=== PATIENT | female | born 1960 | race African-American/Black ===

== ENCOUNTER → 2018-11-09 | Day surgery (SDC) | payer BC ==
[~2018-11-09] MED LIST: ASPIRIN81 M2 PO; ATORVASTATIN CA10 MG PO; COLESTIPOL HCL1 GM PO; GLIMEPIRIDE PO; LOSARTAN POTASS25 MG PO; MIDAZOLAM HCL 2 MG/2 ML VIAL ONE; MULTIVITAMINS1 EAC7 PO; OR PHACO EYE KIT ONE; PREOP PHACO EYE KIT ONE; VITAMIN B12 PO; VITAMIN D PO; Z.2.METFORMIN HCL500 PO
--- OUTSIDE RECORDS SUMMARY | 2018-11-09 06:48 | XMS REPORT | Continuity of Care Document ---
Author Author Junito jeannie Organization Interface Address Unknown Phone Unavailable Problems Problem Status Onset Date Classification Date Reported Comments Source Body mass index 30+ - obesity 09/25/2018 Diagnosis 09/25/2018 [facility] Immunization due 09/25/2018 Diagnosis 09/25/2018 [facility] Diarrhea 09/25/2018 Diagnosis 09/25/2018 [facility] Allergic rhinitis 09/25/2018 Diagnosis 09/25/2018 DAMASO Goodson,[facility] Productive cough 09/25/2018 Diagnosis 09/25/2018 [facility] Acute sinusitis 09/25/2018 Diagnosis 09/25/2018 [facility] Diabetes mellitus 09/25/2018 Diagnosis 09/25/2018 [facility] Epidermal cyst 02/10/2018 08/25/2018 [facility] Acute bronchitis, unspecified 02/05/2018 08/18/2018 DAMASO [place] Acute bronchitis<sup>1</sup> Resolved 01/19/2018 Problem 08/25/2018 Saw her doctoe on 01-19-18 for brinchitis; ststes receive a shot; may have been a steroid, and was put on antibiotic po, which is now competed. pt ststed she doesn't have any more productive cough; had a CXR on - which showed clear lung boss. DAMASO [place], [facility] EPIDERMAL CYST Active 01/06/2018 [facility] Cellulitis of left lower leg 10/08/2017 10/11/2017 [facility] Insect bite of left leg 10/08/2017 10/11/2017 [place] INSECT BITE LEFT LEG Active 10/08/2017 [facility] Encounter for screening mammogram for malignant neoplasm of breast 07/05/2017 10/09/2017 DAM[facility]O [place] Fur[place]cle 05/17/2017 Diagnosis 05/17/2017 [facility] E04.1 Active 02/12/2017 [facility] UNK Active 02/07/2016 [place] N90.89 Active 02/07/2016 [facility] CHOLELITHIASIS Active 06/21/2013 Condition 08/10/[facility] OBESITY Active 06/21/2013 Condition 08/10/2013 [facility] ABDOMINAL PAIN, RIGHT UPPER QUADRANT Active 06/21/2013 Condition 08/10/2013 [facility] Biliary calculus<sup>1</sup> Active 06/21/2013 Problem 10/09/2017 Data migrated from [employer] on 10/24/14. DAMASO Goodson, [facility] [place] Obesity<sup>2</sup> Active 06/21/2013 Problem 09/17/2017 Data migrated from [employer] on 10/24/14. DAMASO Goodson, [facility] [place] Right upper quadrant pain<sup>3</sup> Active 06/21/2013 Problem 09/17/2017 Data migrated from [employer] on 10/24/14. DAMASO Goodson, [facility] [place] Biliary calculus<sup>1</sup> Active 06/21/2013 Problem 02/26/2017 Data migrated from [employer] on 10/24/14. DAMASO Goodson, [place] Obesity<sup>2</sup> Active 06/21/2013 Problem 02/26/2017 Data migrated from [employer] on 10/24/14. DAMASO Goodson, [place] Right upper quadrant pain<sup>3</sup> Active 06/21/2013 Problem 02/26/2017 Data migrated from [employer] on 10/24/14. DAMASO Goodson [place] Biliary calculus<sup>1</sup> Active 06/21/2013 Problem 10/16/2017 Data migrated from [employer] on 10/24/14. DAMASO Goodson, [facility] Obesity<sup>3</sup> Active 06/21/2013 Problem 10/16/2017 Data migrated from [employer] on 10/24/14. DAMASO Alaniz, [facility] Right upper quadrant pain<sup>4</sup> Active 06/21/2013 Problem 10/16/2017 Data migrated from [employer] on 10/24/14. DAMASO Alaniz, [facility] Biliary calculus<sup>1</sup> Active 06/21/2013 Problem 10/11/2017 Data migrated from [employer] on 10/24/14. DAMASO Goodson, [place] Obesity<sup>3</sup> Active 06/21/2013 Problem 10/11/2017 Data migrated from [employer] on 10/24/14. DAMASO Alaniz, [place] Right upper quadrant pain<sup>4</sup> Active 06/21/2013 Problem 10/11/2017 Data migrated from [employer] on 10/24/14. DAMASO Alaniz, [place] Biliary calculus<sup>2</sup> Active 06/21/2013 Problem 08/25/2018 Data migrated from [employer] on 10/24/14. DAMASO Rodas, [facility] Obesity<sup>4</sup> Active 06/21/2013 Problem 08/25/2018 Data migrated from [employer] on 10/24/14. DAMASO Rodas, [facility] Right upper quadrant pain<sup>5</sup> Active 06/21/2013 Problem 08/25/2018 Data migrated from [employer] on 10/24/14. DAMASO Rodas, [facility] Sleep apnea<sup>1</sup> Resolved Problem 06/03/2014 1uses CPAP [facility] [place] Allergic rhinitis Resolved Problem 10/09/2017 HECTOR Goodson [facility] [place] Contact dermatitis Resolved Problem 10/09/2017 DAMASO Goodson, [facility] [place] Glaucoma Resolved Problem 09/17/2017 DAMASO Goodson [facility] [place] Sickle cell trait Active Problem 10/09/2017 DAMASO Goodson [facility] [place] Sleep apnea<sup>4</sup> Active Problem 09/17/2017 uses CPAP DAMASO Goodson [facility] [place] Allergic rhinitis Resolved Problem 02/26/2017 HECTOR Goodson [place] Contact dermatitis Resolved Problem 02/26/2017 HECTOR Goodson [place] Glaucoma Resolved Problem 02/26/2017 DAMASO Goodson [place] Sickle cell trait Active Problem 02/26/2017 DAMASO Goodson [place] Sleep apnea<sup>4</sup> Active Problem 02/26/2017 uses CPAP DAMASO Goodson [place] Allergic rhinitis Resolved Problem 08/25/2018 DAMASO Goodson [facility] Contact dermatitis Resolved Problem 08/25/2018 DAMASO Goodson, [facility] Diabetes mellitus type 2 Active Problem 08/25/2018 DAMASO Alaniz, OPIWindy Goodson,[facility], [facility] High cholesterol Active Problem 08/25/2018 DAMASO Alaniz, [facility] Incontinence, feces<sup>2</sup> Active Problem 10/16/2017 takes PO meds OPIWindy Alaniz, [facility] Sickle cell trait Active Problem 08/25/2018 DAMASO Goodson, [facility] Sleep apnea<sup>5</sup> Active Problem 10/16/2017 uses CPAP DAMASO Alaniz, [facility] Allergic rhinitis Resolved Problem 10/11/2017 DAMASO Goodson, [place] Contact dermatitis Resolved Problem 10/11/2017 DAMASO Goodson, [place] Diabetes mellitus type 2 Active Problem 10/11/2017 DAMASO Alaniz, DAMASO Goodson,[facility], [place] High cholesterol Active Problem 10/11/2017 OPIWindy Alaniz, [place] Incontinence, feces<sup>2</sup> Active Problem 10/11/2017 takes PO meds OPIWindy Alaniz, [place] Sickle cell trait Active Problem 10/11/2017 DAMASO Goodson, [place] Sleep apnea<sup>5</sup> Active Problem 10/11/2017 uses CPAP OPID [place], [place] Allergic rhinitis Resolved Problem 08/18/2018 DAMASO Goodson, OPID [place] Contact dermatitis Resolved Problem 08/18/2018 DAMASO Goodson, [facility] [place] Diabetes mellitus type 2 Active Problem 08/18/2018 [facility] [place], OPIWindy Goodson,[facility], [facility] [place] High cholesterol Active Problem 08/18/2018 [facility] [place], OP[facility] [place] Sickle cell trait Active Problem 08/18/2018 OPIWindy Goodson, OP[facility] [place] Other granulomatous disorders of the skin and subcutaneous tissue 08/25/2018 [facility] Other specified disorders of breast 08/25/2018 [facility] Scar conditions and fibrosis of skin 08/25/2018 [facility] Type 2 diabetes mellitus without complications 08/25/2018 [facility] Obstructive sleep apnea (pediatric) 08/25/2018 [facility] Sickle-cell trait 08/25/2018 [facility] long term use of oral hypoglycemic drugs 08/25/2018 [facility] Incontinence, feces<sup>3</sup> Active Problem 08/25/2018 takes PO meds [facility], [facility] Menopause Active [facility] Sleep apnea<sup>6</sup> Active Problem 08/25/2018 uses CPAP OPID [facility], [facility] Viral Enteritis Problem 05/17/2017 [facility] Acute Upper Respiratory Infection Problem 05/17/2017 [facility] Gastroenteritis Problem 05/17/2017 [facility] Constipation Problem 05/17/2017 [facility] OTH NONINFLAMMATORY DISORDERS OF VULVA A Active [facility] HIDRADENITIS SUPPURATIVA Active [facility] Medications Medication Details Route Status Patient Instructions Ordering Provider Order Date Source midazolam (ANES) Route: IV, Drug form: SOLN, ONCE, Stop date: 02/05/18 7:48:00 CDT Inactive 02/05/2018 [facility] fentaNYL (ANES) Route: IV, Drug form: INJ, ONCE, Stop date: 02/05/18 7:48:00 CDT Inactive 02/05/2018 [facility] ondansetron (ANES) Route: IV, Drug form: INJ, ONCE, Stop date: 02/05/18 7:48:00 CDT Inactive 02/05/2018 [facility] propofol (ANES) Route: IV, Drug form: INJ, ONCE, Stop date: 02/05/18 7:48:00 CDT Inactive 02/05/2018 [facility] lidocaine (ANES) Route: IV, Drug form: INJ, ONCE, Stop date: 02/05/18 7:48:00 CDT Inactive 02/05/2018 [facility] acetaminophen (ANES) 10 mg Route: IV, Drug form: INJ, Start date: 02/05/18 7:15:00 CDT, Stop date: 02/05/18 8:15:00 CDT Inactive 02/05/2018 [facility] clindamycin (ANES) 300 mg Route: IV, Drug form: INJ, Start date: 02/05/18 7:12:00 CDT, Stop date: 02/05/18 8:12:00 CDT Inactive 02/05/2018 [facility] Lactated Ringers Injection IV (ANES) 1000 mL Route: IV, Total Volume: 1,000, Start date: 02/05/18 7:08:00 CDT, Stop date: 02/05/18 8:08:00 CDT Inactive 02/05/2018 [facility] Lactated Ringers IV 1,000 mL 1,000 mL, Rate: 40 ml/hr, Infuse over: 25 hr, Route: IV, Dosing Weight 95.727 kg, Total Volume: 1,000, Start date: 02/05/18 5:23:00 CDT, Duration: 30 day, Stop date: 03/07/18 5:22:00 CDT, 2.15, m2 No Longer Active 02/05/2018 [facility] heparin 5,000 unit, Route: SUB-Q, ONCE, Dosing Weight 95.727, kg, Start date: 02/05/18 5:23:00 CDT, Stop date: 02/05/18 5:23:00 CDT Inactive 02/05/2018 [facility] Ofirmev 1,000 mg, 100 mL, Route: IV, Drug form: INJ, ONCE, Dosing Weight 95.727, kg, Start date: 02/05/18 5:23:00 CDT, Stop date: 02/05/18 5:23:00 CDTNotes: Infuse over 15 minutes Do not exceed 4gm/day of acetaminophen MEDICATION WASTE Product Size: 1000 mg Product Wasted: ___ mg No Longer Active 02/05/2018 [facility] 72 HR Scopolamine 0.0139 MG/HR Transdermal Patch 1.5 mg, 1 patch, Route: TOP, Dosing Weight 95.727, kg, ONCE, Start date: 02/05/18 5:23:00 CDT, Stop date: 02/05/18 5:23:00 CDT Inactive 02/05/2018 [facility] Clindamycin 600 mg, 50 mL, Route: IVPB, Drug form: INJ, ONCE, Dosing Weight 95.727, kg, Start date: 02/05/18 5:22:00 CDT, Stop date: 02/05/18 5:22:00 CDT, ABX Indication: Surgical Prophylaxis No Longer Active 02/05/2018 [facility] Cephalexin 500 MG Oral Capsule [Keflex] 500 mg=1 cap, PO, QID, X 7 day, # 28 cap, 0 Refill(s) Active 10/09/2017 [facility] metFORMIN 500 mg oral tablet, extended release 1,000 mg=2 tab, PO, BID-Meals, # 60 tab, 1 Refill(s) Active 10/08/2017 [facility] losartan 25 mg oral tablet 25 mg=1 tab, PO, Daily, # 30 tab, 0 Refill(s) Active 10/08/2017 [facility] glimepiride 1 mg oral tablet 2 mg=2 tab, PO, BID, # 30 tab, 0 Refill(s) Active 10/08/2017 [facility] DULoxetine 30 mg oral delayed release capsule 30 mg=1 cap, PO, Bedtime, # 30 cap, 0 Refill(s) Active 10/08/2017 [facility] Colestipol Hydrochloride 1000 MG Oral Tablet 1 gm=1 tab, PO, BID, # 60 tab, 0 Refill(s) Active 10/08/2017 [facility] atorvastatin 10 mg oral tablet 10 mg=1 tab, PO, Bedtime, # 30 tab, 0 Refill(s) Active 10/08/2017 [facility] Insulin regular 3 unit, Route: IV, ONCE, Dosing Weight 95.455, kg, Start date: 02/19/16 13:40:00 CDT, Stop date: 02/19/16 13:40:00 CDT Inactive 02/19/2016 [facility] Motrin 600 mg oral tablet 600 mg=1 tab, PO, Q6H, PRN Pain, take with food, # 30 tab, 0 Refill(s) Active 02/19/2016 [facility] ketOROLAC (ANES) IV, ONCE Inactive 02/19/2016 [facility] Diphenhydramine 12.5 mg, Route: IVP, Drug form: INJ, Q6H, Dosing Weight 95.455, kg, PRN Itching, Start date: 02/19/16 8:50:00 CDT, Duration: 30 day, Stop date: 03/20/16 8:49:00 CDT Inactive 02/19/2016 [facility] Naloxone 0.4 mg, Route: IVP, Q2MIN, Dosing Weight 95.455, kg, PRN Narcotic Reversal, Start date: 02/19/16 8:50:00 CDT, Duration: 8 doses or times, Stop date: Limited # of times Inactive 02/19/2016 [facility] Promethazine 6.25 mg, Route: IVPB, ONCE, Dosing Weight 95.455, kg, PRN Nausea & Vomiting, Start date: 02/19/16 8:50:00 CDT Inactive 02/19/2016 [facility] Ondansetron 4 mg, Route: IVP, ONCE, Dosing Weight 95.455, kg, PRN Nausea & Vomiting, Start date: 02/19/16 8:50:00 CDT Inactive 02/19/2016 [facility] Fentanyl 50 microgram, Route: IVP, Q5Min, Dosing Weight 95.455, kg, PRN Pain Score 7-10, Start date: 02/19/16 8:50:00 CDT, Duration: 2 doses or times, Stop date: Limited # of times Inactive 02/19/2016 [facility] Flumazenil 0.2 mg, Route: IVP, PRN, Dosing Weight 95.455, kg, PRN Benzodiazepine Reversal, Initial dose, Start date: 02/19/16 8:50:00 CDT, Duration: 30 day, Stop date: 03/20/16 8:49:00 CDT Inactive 02/19/2016 [facility] Meperidine 12.5 mg, Route: IVP, Q30Min, Dosing Weight 95.455, kg, PRN Other -See Comment, For shivering, Start date: 02/19/16 8:50:00 CDT, Duration: 2 doses or times, Stop date: Limited # of times Inactive 02/19/2016 [facility] Sodium Chloride 0.154 MEQ/ML Injectable Solution 500 mL, Rate: 125 ml/hr, Infuse over: 4 hr, Route: IV, Dosing Weight 95.455 kg, Total Volume: 500, Start date: 02/19/16 8:50:00 CDT, Duration: 30 day, Stop date: 03/20/16 8:49:00 CDT Inactive 02/19/2016 [facility] Calcium Chloride 0.0014 MEQ/ML / Potassium Chloride 0.004 MEQ/ML / Sodium Chloride 0.103 MEQ/ML / Sodium Lactate 0.028 MEQ/ML Injectable Solution 1,000 mL, Rate: 125 ml/hr, Infuse over: 8 hr, Route: IV, Dosing Weight 95.455 kg, Total Volume: 1,000, Start date: 02/19/16 8:50:00 CDT, Duration: 30 day, Stop date: 03/20/16 8:49:00 CDT Inactive 02/19/2016 [facility] Oxycodone 5 mg, Route: PO, Drug form: TAB, Q4H, Dosing Weight 95.455, kg, PRN Pain Score 4-6, Start date: 02/19/16 8:50:00 CDT, Duration: 30 day, Stop date: 03/20/16 8:49:00 CDT Inactive 02/19/2016 [facility] Acetaminophen 1,000 mg, Route: PO, Drug form: TAB, ONCE, Dosing Weight 95.455, kg, PRN Pain Score 1-3, Start date: 02/19/16 8:50:00 CDT, Duration: 1 doses or times, Stop date: Limited # of times Inactive 02/19/2016 [facility] esmolol 10 mg, Route: IVP, Q5Min, Dosing Weight 95.455, kg, PRN Other -See Comment, Start date: 02/19/16 8:50:00 CDT, Duration: 5 doses or times, Stop date: Limited # of times Inactive 02/19/2016 [facility] Hydralazine 10 mg, Route: IVP, Q20Min, Dosing Weight 95.455, kg, PRN Elevated BP, Start date: 02/19/16 8:50:00 CDT, Duration: 2 doses or times, Stop date: Limited # of times Inactive 02/19/2016 [facility] Labetalol 10 mg, Route: IVP, Q5Min, Dosing Weight 95.455, kg, PRN Elevated BP, Start date: 02/19/16 8:50:00 CDT, Duration: 5 doses or times, Stop date: Limited # of times Inactive 02/19/2016 [facility] Hydromorphone 0.5 mg, Route: IVP, Q5Min, Dosing Weight 95.455, kg, PRN Pain Score 7-10, Start date: 02/19/16 8:50:00 CDT, Duration: 4 doses or times, Stop date: Limited # of times Inactive 02/19/2016 [facility] ondansetron (ANES) Route: IV, Drug form: INJ, ONCE, Stop date: 02/19/16 8:35:00 CDT Inactive 02/19/2016 [facility] dexamethasone (ANES) Route: IV, Drug form: INJ, ONCE, Stop date: 02/19/16 8:35:00 CDT Inactive 02/19/2016 [facility] fentaNYL (ANES) Route: IV, Drug form: INJ, ONCE, Stop date: 02/19/16 8:25:00 CDT Inactive 02/19/2016 [facility] propofol (ANES) Route: IV, Drug form: INJ, ONCE, Stop date: 02/19/16 8:25:00 CDT Inactive 02/19/2016 [facility] lidocaine (ANES) Route: IV, Drug form: INJ, ONCE, Stop date: 02/19/16 8:25:00 CDT Inactive 02/19/2016 [facility] ceFAZolin (ANES) Route: IV, Drug form: INJ, ONCE, Stop date: 02/19/16 8:25:00 CDT Inactive 02/19/2016 [facility] midazolam (ANES) Route: IV, Drug form: SOLN, ONCE, Stop date: 02/19/16 8:10:00 CDT Inactive 02/19/2016 [facility] LR 1000 mL INJ (ANES) Route: IV, Total Volume: 1,000, Start date: 02/19/16 7:33:00 CDT, Stop date: 02/19/16 8:33:00 CDT Inactive 02/19/2016 [facility] Albuterol 0.833 MG/ML / Ipratropium [place] 0.167 MG/ML Inhalant Solution 3 mL, Route: NEB, Dosing Weight 95.455, kg, ONCE, STAT, Start date: 02/19/16 7:32:00 CDT, Stop date: 02/19/16 7:32:00 CDT Inactive 02/19/2016 [facility] Sodium Chloride 0.154 MEQ/ML Injectable Solution 500 mL, Rate: 25 ml/hr, Infuse over: 20 hr, Route: IV, Dosing Weight 95.455 kg, Total Volume: 500, Start date: 02/19/16 7:32:00 CDT, Duration: 30 day, Stop date: 03/20/16 7:31:00 CDT Inactive 02/19/2016 [facility] Calcium Chloride 0.0014 MEQ/ML / Potassium Chloride 0.004 MEQ/ML / Sodium Chloride 0.103 MEQ/ML / Sodium Lactate 0.028 MEQ/ML Injectable Solution 1,000 mL, Rate: 25 ml/hr, Infuse over: 40 hr, Route: IV, Dosing Weight 95.455 kg, Total Volume: 1,000, Start date: 02/19/16 7:32:00 CDT, Duration: 30 day, Stop date: 03/20/16 7:31:00 CDT Inactive 02/19/2016 [facility] Sodium Chloride 0.154 MEQ/ML Injectable Solution 1,000 mL, Rate: 25 ml/hr, Infuse over: 40 hr, Route: IV, Dosing Weight 94.091 kg, Total Volume: 1,000, Start date: 05/04/15 7:27:00, Duration: 30 day, Stop date: 06/03/15 7:26:00 Inactive 05/04/2015 [facility] predniSONE 20 mg oral tablet 20 mg=1 tab, PO, Daily, # 7 tab, 0 Refill(s) Active 05/03/2015 [facility] METFORMIN HCL 500 MG TABS Active 06/21/2013 [facility] GLIMEPIRIDE TABS Active 06/21/2013 [facility] MULTIVITAMINS CAPS Active 06/21/2013 [facility] [id number] 1000 MCG CAPS Active 06/21/2013 [facility] atorvastatin 10 MG Oral Tablet atorvastatin 10 mg tablet TAKE 1 TABLET BY MOUTH EVERY DAY Active [facility] Sulfamethoxazole 800 MG / Trimethoprim 160 MG Oral Tablet [Bactrim] Bactrim DS 800 mg-160 mg tablet Take 1 tablet every 12 hours by oral route as directed for 10 days. Active [facility] Cephalexin 500 MG Oral Tablet cephalexin 500 mg tablet Take 1 tablet every 12 hours by oral route as directed for 10 days. Active [facility] Colestipol Hydrochloride 1000 MG Oral Tablet colestipol 1 gram tablet TK 1 T PO D IN THE MORNING Active [facility] FreeStyle Avinger Lite kit FreeStyle Avinger Lite kit USE DIRECTED Active [facility] FreeStyle Lite Strips FreeStyle Lite Strips USE DAILY DIRECTED Active [facility] glimepiride 1 MG Oral Tablet glimepiride 1 mg tablet TAKE ONE AND ONE HALF TABLET BY MOUTH 2 TIMES A DAY WITH BREAKFAST AND EVENING MEAL Active [facility] 24 HR Metformin hydrochloride 500 MG Extended Release Oral Tablet metformin ER 500 mg tablet,extended release 24 hr TAKE 2 TABLETS BY MOUTH IN THE MORNING AND 1 TABLET WITH THE EVENING MEAL Active [facility] multivitamin multivitamin Active [facility] Naproxen 500 MG Oral Tablet naproxen 500 mg tablet TAKE 1 TABLET BY MOUTH TWICE A DAY Active [facility] Cholecalciferol 2000 UNT Oral Capsule Vitamin D3 2,000 unit capsule Active [facility] Albuterol 0.83 MG/ML Inhalation Solution albuterol sulfate 2.5 mg/3 mL (0.083 %) solution for nebulization Inhale 3 mL by nebulization route. Active [facility] Azithromycin 250 MG Oral Tablet azithromycin 250 mg tablet TAKE 2 TABLETS (500 MG) with food today and starting tomorrow 1 TABLET (250 MG) with LUNCH ONCE DAILY FOR 4 DAYS Active [facility] benzonatate 200 MG Oral Capsule benzonatate 200 mg capsule Take 1 capsule 3 times a day by oral route as needed for 10 days. Active [facility] Fluticasone propionate 0.05 MG/ACTUAT Metered Dose Nasal [place] fluticasone propionate 50 mcg/actuation nasal spray,suspension [place] 1 spray twice a day by intranasal route as directed for 10 days. Active [facility] Acetaminophen 325 MG / Hydrocodone Bitartrate 5 MG Oral Tablet hydrocodone 5 mg-acetaminophen 325 mg tablet TK 1 T PO Q 6 H PRF PAIN Active [facility] Cozaar losartan Active [facility] Allergies, Adverse Reactions, Alerts Substance Category Reaction Severity Reaction type Status Date Reported Comments Source Immunizations Immunization Date Given Site Status Last Updated Comments Source Hep A, adult 03/25/2017 completed [facility] influenza, unspecified formulation 02/22/2017 completed [facility] Tdap 05/25/2011 completed [facility] Results Order Name Results Value Reference Range Date Interpretation Comments Source PEF 58 % 09/25/2018 [facility] Percent Predicted Value 250 09/25/2018 [facility] PEF 260 09/25/2018 [facility] Percent Predicted Value 60 % 09/25/2018 [facility] Influenza A negative 09/25/2018 [facility] Influenza B negative 09/25/2018 [facility] CHEM PANEL eGFR 112 mL/min/1.73m2 02/04/2018 Result Comment: The eGFR is calculated using the CKD-EPI formula. In most young, healthy individuals the eGFR will be >90 mL/min/1.73m2. The eGFR declines with age. An eGFR of 60-89 may be normal in some populations, particularly the elderly, for whom the CKD-EPI formula has not been extensively validated. Use of the eGFR is not recommended in the following populations: Individuals with unstable creatinine concentrations, including patients and those with serious co-morbid conditions. Patients with extremes in muscle mass or diet. The data above are obtained from the National Kidney Disease Education Program (NKDEP) which additionally recommends that when the eGFR is used in patients with extremes of body mass index for purposes of drug dosing, the eGFR should be multiplied by the estimated BMI. [facility] CHEM PANEL Calcium Lvl 9.2 mg/dL 8.5 - 10.5 02/04/2018 [facility] CHEM PANEL Potassium Lvl 3.9 meq/L 3.5 - 5.1 02/04/2018 [facility] CHEM PANEL Sodium Lvl 140 meq/L 135 - 145 02/04/2018 [facility] CHEM PANEL CO2 27 meq/L 24 - 32 02/04/2018 [facility] CHEM PANEL Chloride Lvl 104 meq/L 95 - 109 02/04/2018 [facility] CHEM PANEL Glucose Lvl 118 mg/dL 70 - 99 02/04/2018 [facility] CHEM PANEL BUN 14 mg/dL 7 - 22 02/04/2018 [facility] CHEM PANEL Creatinine Lvl 0.68 mg/dL 0.50 - 1.40 02/04/2018 [facility] CHEM PANEL AGAP 12.9 meq/L 10.0 - 20.0 02/04/2018 [facility] HEMATOLOGY Neutrophils # 4.6 K/CMM 1.5 - 8.1 02/04/2018 [facility] HEMATOLOGY Lymphocytes # 2.3 K/CMM 1.0 - 5.5 02/04/2018 [facility] HEMATOLOGY Basophils # 0.1 K/CMM 0.0 - 0.2 02/04/2018 [facility] HEMATOLOGY Monocytes # 0.5 K/CMM 0.0 - 0.8 02/04/2018 [facility] HEMATOLOGY Eosinophils # 0.1 K/CMM 0.0 - 0.5 02/04/2018 [facility] HEMATOLOGY Microcyte 1+ *ABN* (02/04/18 3:08 PM) None Seen 02/04/2018 [facility] HEMATOLOGY Eosinophils 1.7 % 0.0 - 4.0 02/04/2018 [facility] HEMATOLOGY Segs 60.6 % 45.0 - 75.0 02/04/2018 [facility] HEMATOLOGY Lymphocytes 30.3 % 20.0 - 40.0 02/04/2018 [facility] HEMATOLOGY Basophils 1.1 % 0.0 - 1.0 02/04/2018 [facility] HEMATOLOGY Monocytes 6.3 % 2.0 - 12.0 02/04/2018 [facility] HEMATOLOGY MCV 78.1 fL 80.0 - 98.0 02/04/2018 [facility] HEMATOLOGY MCH 24.7 pg 27.0 - 31.0 02/04/2018 [facility] HEMATOLOGY MCHC 31.7 g/dL 32.0 - 36.0 02/04/2018 [facility] HEMATOLOGY Hgb 11.0 g/dL 12.0 - 16.0 02/04/2018 [facility] HEMATOLOG[facility] Hct 34.8 % 36.0 - 48.0 02/04/2018 [facility] HEMATOLOGY RDW 16.8 % 11.5 - 14.5 02/04/2018 [facility] HEMATOLOGY Platelet 240 K/CMM 133 - 450 02/04/2018 [facility] HEMATOLOGY MPV 8.6 fL 7.4 - 10.4 02/04/2018 [facility] HEMATOLOGY RBC 4.46 M/CMM 4.20 - 5.40 02/04/2018 [facility] HEMATOLOGY WBC 7.7 K/CMM 3.7 - 10.4 02/04/2018 [facility] SPECIAL CHEMISTRY Hgb A1C 7.8 % <=5.6 % 02/04/2018 [facility] Chest 2 views DX Chest 2 views DX Clinical Indication: J20.9 Acute bronchitis, unspecified - Acute bronchitis, unspecified. Comparison: None FINDINGS: PA and lateral chest radiographs were obtained. MEDIASTINUM: The cardiac silhouette is normal in size. The aorta is unremarkable. LUNGS: The lungs are clear. No pleural effusion. No pneumothorax. OTHER: No acute osseous abnormalities. IMPRESSION: No acute cardiopulmonary abnormality identified. URIAH: LAURENCE 01/29/2018 - - Read by: Austen Martinez MD Dictated Date/time: 01/30/18 10:32 Electronically Signed by: Austen Martinez MD 01/30/18 10:35 FINAL REPORT HECTOR Rothman [place] Breast Complete Uni US Breast Complete Uni US COMPLETE ULTRASOUND OF LEFT BREAST AND AXILLA: 09/14/2017 CLINICAL: Left Breast Mass/R92.8 Other Abnormal And Inconclusive Findings On Diagnostic Imaging Of Breast. COMPARISON:Comparison is made to exams dated: 07/03/2017 mammogram - [facility], 05/07/2016 mammogram, 03/15/2015 mammogram, 03/15/2015 ultrasound, 07/28/2013 mammogram, and 07/28/2013 ultrasound. TECHNIQUE: Color flow and real-time ultrasound of the left breast four quadrants and axilla regions were performed on the areas of interest. FINDINGS: There is 1.9 cm x 1.6 cm x 1.1 cm oval mass in the left breast at 1 o'clock posterior depth 16 cm from the nipple. This oval mass is hypoechoic. This correlates with mammography findings. Color flow imaging demonstrates that there is vascularity present. There are two other abnormally enlarged left axillary nodes with hilar effacement and a single similar node in the deep right axilla. The patient gives a history of hidradenitis suppurativa. IMPRESSION: SUSPICIOUS OF MALIGNANCY RECOMMENDATION:Bilateral axillary adenopathy is unchanged from prior exams, but remains suspicious. If this adenopathy has not been previously evaluated, biopsy is recommended. The 1.9 cm x 1.6 cm x 1.1 cm oval mass in the left breast resembles an enlarged lymph node and is at a low suspicion for malignancy. An ultrasound guided biopsy is recommended. This exam was interpreted at [id number] for HECTOR Alaniz, SL 15. Professional services are provided by the [facility]. Barrera Moran M.D., cm/hermes:09/14/2017 14:54:04 Media Operator(s): Claire Erwin [facility] letter sent: BI-RADS 4/5 Ultrasound BI-RADS: 4a Suspicious abnormality - low suspicion for malignancy 09/14/2017 - - Read by: Duglas Peña MD Dictated Date/time: 09/14/17 14:54 Electronically Signed by: Duglas Peña MD 09/14/17 14:54 FINAL REPORT HECTOR OPIWindy [place] Breast Mammo Scrn FIONA incl CAD MA Breast Mammo Scrn FIONA incl CAD MA BILATERAL DIGITAL SCREENING MAMMOGRAM WITH CAD: 07/03/2017 CLINICAL: Encounter For Screening Mammogram For Malignant Neoplasm Of Breast/Z12.31. Current study was evaluated with a Computer Aided Detection (CAD) system. COMPARISON:No prior exams were available for comparison. TECHNIQUE: Mammographic views were obtained using digital acquisition. Current study was also evaluated with a Computer Aided Detection (CAD) system. FINDINGS: There are scattered fibroglandular densities in both breasts. There is 2.5 cm oval high density mass with a circumscribed margin in the left axillary tail 17 cm from the nipple. This may be a skin lesion. No other significant masses, calcifications, or other findings are seen in either breast. IMPRESSION: INCOMPLETE: NEEDS ADDITIONAL IMAGING EVALUATION RECOMMENDATION:The 2.5 cm oval high density mass is indeterminate. Ultrasound with possible diagnostic mammography are recommended. This exam was interpreted at [id number] for HECTOR [place]. SUMMARY: The staff from [facility] will contact the patient to schedule the additional studies. A separate report will be issued following interpretation of the additional studies. Professional services are provided by the [facility]. Wili duran/hermes:07/03/2017 14:07:35 Media Operator(s): RT Luis(R)(M), [facility] letter sent: BI-RADS 0 Mammogram BI-RADS: 0 Indeterminate 07/03/2017 - - Read by: Wili Mcclendon MD Dictated Date/time: 07/03/17 14:07 Electronically Signed by: Wili Mcclendon MD 07/03/17 14:07 FINAL REPORT HECTOR Alaniz Glucose [Mass/volume] in Capillary blood Results 118 05/17/2017 [facility] Influenza A negative 05/17/2017 [facility] Influenza B negative 05/17/2017 [facility] Thyroid biopsy w guidance US Thyroid biopsy w guidance US Patient Name: ADIEL LADD : 1960; Age: 56 years y/o Female MR: [id number] Study: Thyroid biopsy w guidance US 02/23/2017 9:40 AM CDT Ordering Physician: Cheli Smith MD Clinical Indication: - Lt Thy nodule; Comparison: 01/08/2017 thyroid ultrasound exam Timeout performed prior to the procedure. Patient prepped and draped in a sterile fashion. Sonographic guidance. Lidocaine used for local anesthesia. Hard copy sonographic images recorded. Percutaneous 25-gauge FNA biopsy of dominant left thyroid lobe nodule. 4 FNA biopsy specimens obtained. Procedure well-tolerated. SL: [id number] 02/23/2017 - - Read by: Mat Olmedo MD Dictated Date/time: 02/23/17 11:13 Electronically Signed by: Mat Olmedo MD 02/23/17 11:14 FINAL REPORT [facility] US Thyroid US EXAM: US THYROID DATE: 01/08/2017 at 1521 hours INDICATION: - E04.1 Nontoxic single thyroid nodule ADDITIONAL INFORMATION: None. COMPARISON: None. TECHNIQUE: Multiplanar grayscale and color Doppler ultrasound of the neck were obtained in the area of the thyroid. FINDINGS: Thyroid parenchyma: Normal. Size: Right thyroid: 4.8 x 2.0 x 1.7 cm Left thyroid: 4.6 x 2.6 x 2.5 cm Isthmus thickness: 0.5 cm Thyroid nodules: Nodule 1: Location: Isthmus Size: 1.6 x 1.2 x 0.7 cm Composition: Solid or almost completely solid (2 points). Echogenicity: Isoechoic (1 point). Shape: Wider than tall (0 points). Margins: Smooth (0 points). Echogenic foci: Absent (0 points). Other: None. ACR TI-RADS Score: TR3 - Mildly suspicious (total 3 points). -- ACR recommendation:=2.5 cm FNA;=1.5 cm f/u in 1, 3, and 5 years; <1.5 cm no f/u or FNA. Recommendations: Follow-up in 1, 3, and 5 years. Nodule 2: Location: Left mid thyroid Size: 3.3 x 2.4 x 1.9 cm Composition: Solid or almost completely solid (2 points). Echogenicity: Hypoechoic (2 points). Shape: Wider than tall (0 points). Margins: Smooth (0 points). Echogenic foci: Absent (0 points). Other: None. ACR TI-RADS Score: TR4 - Moderately suspicious (total 4-6 points). -- ACR recommendation:=1.5 cm FNA;=1 cm f/u in 1, 2, 3, and 5 years; <1 cm no f/u or FNA. Recommendations: Fine-needle aspiration recommended Cervical lymph nodes: Normal. IMPRESSION: 1. Thyroid nodules with largest one meeting criteria for fine-needle aspiration. 2. Smallest nodule may be followed with imaging. REFERENCE: Nicky FN, Alida WD, Jesus Manuel EG, et al. ACR Thyroid Imaging, Reporting and Data System (TI-RADS): White Paper of the ACR TI-RADS Committee. J Am Luly Radiol. 2017; 14(5): 587-595. 01/08/2017 - - Read by: Adam Camacho MD Dictated Date/time: 01/09/17 08:34 Electronically Signed by: Adam Camacho MD 01/09/17 08:57 FINAL REPORT [facility] BLOOD BANK RESULTS ABO/Rh O POS 02/13/2016 [facility] BLOOD BANK RESULTS Antibody Scrn Negative (02/13/16 10:24 AM) 02/13/2016 [facility] CHEM PANEL Globulin 4.2 g/dL 2.7 - 4.2 02/13/2016 [facility] CHEM PANEL A/G Ratio 0.9 0.7 - 1.6 02/13/2016 [facility] CHEM PANEL AGAP 10.8 meq/L 10.0 - 20.0 02/13/2016 [facility] PANEL B/C Ratio 19 6 - 25 02/13/2016 [facility] CHEM PANEL Bili Total 0.2 mg/dL 0.2 - 1.3 02/13/2016 [facility] CHEM PANEL Total Protein 7.8 g/dL 6.4 - 8.4 02/13/2016 [facility] CHEM PANEL AST 15 unit/L 0 - 37 02/13/2016 [facility] CHEM PANEL Alk Phos 78 unit/L 39 - 136 02/13/2016 [facility] CHEM PANEL Albumin Lvl 3.6 g/dL 3.5 - 5.0 02/13/2016 [facility] CHEM PANEL ALT 19 unit/L 0 - 65 02/13/2016 [facility] CHEM PANEL Potassium Lvl 3.8 meq/L 3.5 - 5.1 02/13/2016 [facility] CHEM PANEL Chloride Lvl 106 meq/L 95 - 109 02/13/2016 [facility] CHEM PANEL Calcium Lvl 8.9 mg/dL 8.5 - 10.5 02/13/2016 [facility] CHEM PANEL CO2 26 meq/L 24 - 32 02/13/2016 [facility] CHEM PANEL Glucose Lvl 204 mg/dL 70 - 99 02/13/2016 [facility] CHEM PANEL BUN 13 mg/dL 7 - 22 02/13/2016 [facility] CHEM PANEL Creatinine Lvl 0.68 mg/dL 0.50 - 1.40 02/13/2016 [facility] CHEM PANEL Sodium Lvl 139 meq/L 135 - 145 02/13/2016 [facility] CHEM PANEL eGFR 114 mL/min/1.73m2 02/13/2016 Result Comment: The eGFR is calculated using the CKD-EPI formula. In most young, healthy individuals the eGFR will be >90 mL/min/1.73m2. The eGFR declines with age. An eGFR of 60-89 may be normal in some populations, particularly the elderly, for whom the CKD-EPI formula has not been extensively validated. Use of the eGFR is not recommended in the following populations: Individuals with unstable creatinine concentrations, including patients and those with serious co-morbid conditions. Patients with extremes in muscle mass or diet. The data above are obtained from the National Kidney Disease Education Program (NKDEP) which additionally recommends that when the eGFR is used in patients with extremes of body mass index for purposes of drug dosing, the eGFR should be multiplied by the estimated BMI. [facility] Hgb 11.1 g/dL 12.0 - 16.0 02/13/2016 [facility] RBC 4.56 M/CMM 4.20 - 5.40 02/13/2016 [facility] WBC 5.7 K/CMM 3.7 - 10.4 02/13/2016 [facility] MCV 75.1 fL 80.0 - 98.0 02/13/2016 [facility] RDW 16.7 % 11.5 - 14.5 02/13/2016 [facility] MCH 24.4 pg 27.0 - 31.0 02/13/2016 [facility] MCHC 32.5 g/dL 32.0 - 36.0 02/13/2016 [facility] Hct 34.2 % 36.0 - 48.0 02/13/2016 [facility] MPV 8.8 fL 7.4 - 10.4 02/13/2016 [facility] HEMATOLOGY Platelet 210 K/CMM 133 - 450 02/13/2016 [facility] HEMATOLOGY Lymphocytes 30.7 % 20.0 - 40.0 02/13/2016 [facility] HEMATOLOGY Segs 60.6 % 45.0 - 75.0 02/13/2016 [facility] HEMATOLOGY Monocytes 5.7 % 2.0 - 12.0 02/13/2016 [facility] HEMATOLOGY Eosinophils 1.7 % 0.0 - 4.0 02/13/2016 [facility] HEMATOLOGY Monocytes # 0.3 K/CMM 0.0 - 0.8 02/13/2016 [facility] HEMATOLOGY Eosinophils # 0.1 K/CMM 0.0 - 0.5 02/13/2016 [facility] HEMATOLOGY Segs-Bands # 3.4 K/CMM 1.5 - 8.1 02/13/2016 [facility] HEMATOLOGY Basophils # 0.1 K/CMM 0.0 - 0.2 02/13/2016 [facility] HEMATOLOGY Lymphocytes # 1.7 K/CMM 1.0 - 5.5 02/13/2016 [facility] HEMATOLOGY Basophils 1.3 % 0.0 - 1.0 02/13/2016 [facility] HEMATOLOGY Microcyte 1+ *ABN* (02/13/16 10:24 AM) None Seen 02/13/2016 [facility] Vital Signs Vital Sign Value Date Comments Source Diastolic (mm Hg) 70 09/25/2018 [facility] Height 67 09/25/2018 [facility] Systolic (mm Hg) 118 09/25/2018 [facility] Weight 208 09/25/2018 [facility] Heart Rate 72 02/05/2018 [facility] Respitory Rate 15 02/05/2018 [facility] Systolic (mm Hg) 116 02/05/2018 [facility] Diastolic (mm Hg) 78 02/05/2018 [facility] Respitory Rate 14 02/05/2018 [facility] Heart Rate 69 02/05/2018 [facility] Systolic (mm Hg) 114 02/05/2018 [facility] Diastolic (mm Hg) 79 02/05/2018 [facility] Systolic (mm Hg) 102 02/05/2018 [facility] Diastolic (mm Hg) 70 02/05/2018 [facility] Heart Rate 68 02/05/2018 [facility] Respitory Rate 15 02/05/2018 [facility] Temperature Oral (F) 98 F 02/05/2018 [facility] BMI Calculated 33.05 02/05/2018 [facility] Weight 95.727 02/05/2018 [facility] Temperature Oral (F) 97.0 F 02/04/2018 [facility] Height 170.18 cm 02/02/2018 [facility] Weight 98.636 10/09/2017 [facility] BMI Calculated 34.06 10/09/2017 [facility] Height 170.18 cm 10/09/2017 [facility] Systolic (mm Hg) 137 10/09/2017 [facility] Diastolic (mm Hg) 66 10/09/2017 [facility] Respitory Rate 18 10/09/2017 [facility] Temperature Oral (F) 98.5 F 10/09/2017 [facility] Heart Rate 80 10/09/2017 [facility] BMI Calculated 32.65 10/08/2017 [facility] Weight 94.545 10/08/2017 [facility] Height 170.18 cm 10/08/2017 [facility] Diastolic (mm Hg) 80 05/17/2017 [facility] Height 67 05/17/2017 [facility] Systolic (mm Hg) 122 05/17/2017 [facility] Weight 210 05/17/2017 [facility] Systolic (mm Hg) 133 02/19/2016 [facility] Diastolic (mm Hg) 79 02/19/2016 [facility] Systolic (mm Hg) 138 02/19/2016 [facility] Diastolic (mm Hg) 79 02/19/2016 [facility] Systolic (mm Hg) 134 02/19/2016 [facility] Diastolic (mm Hg) 74 02/19/2016 [facility] Respitory Rate 21 02/19/2016 [facility] Respitory Rate 13 02/19/2016 [facility] Respitory Rate 19 02/19/2016 [facility] Temperature Oral (F) 97.8 F 02/13/2016 [facility] Heart Rate 66 02/13/2016 [facility] Weight 95.455 02/13/2016 [facility] BMI Calculated 32.96 02/13/2016 [facility] Height 170.18 cm 02/13/2016 [facility] Systolic (mm Hg) 112 05/04/2015 [facility] Diastolic (mm Hg) 71 05/04/2015 [facility] Respitory Rate 17 05/04/2015 [facility] Systolic (mm Hg) 103 05/04/2015 [facility] Diastolic (mm Hg) 67 05/04/2015 [facility] Respitory Rate 14 05/04/2015 [facility] Respitory Rate 16 05/04/2015 [facility] Systolic (mm Hg) 143 05/04/2015 [facility] Diastolic (mm Hg) 77 05/04/2015 [facility] Height 170.18 cm 05/03/2015 [facility] BMI Calculated 32.49 05/03/2015 [facility] Weight 94.091 05/03/2015 [facility] Weight 179 08/04/2013 [facility] Temperature Oral (F) 98.1 F 08/04/2013 [facility] Heart Rate 68 08/04/2013 [facility] Systolic (mm Hg) 119 08/04/2013 [facility] Diastolic (mm Hg) 77 08/04/2013 [facility] Temperature Oral (F) 98.5 F 06/21/2013 [facility] Weight 187 06/21/2013 [facility] Heart Rate 64 06/21/2013 [facility] Systolic (mm Hg) 104 06/21/2013 [facility] Diastolic (mm Hg) 71 06/21/2013 [facility] Height 67 06/21/2013 [facility] Encounters Location Location Details Encounter Type Encounter Number Reason For Visit Attending Provider ADM Date DC Date Status Source [facility] General Surgery 350 Office Visit [id number] Kuldip Olivares MD 08/04/2013 08/04/2013 Medical [facility] [place] Lab Report [id number] Kuldip Olivares MD 08/10/2013 08/10/2013 Medical [facility] [place] [facility] [id number] Ivan Gabriel 01/19/2014 01/20/2014 [facility]patient [facility] [place] [facility] [id number] Ivan Gabriel 06/01/2014 06/02/2014 [facility] Bedded Outpatient [id number] Alex Gambino 05/04/2015 05/04/2015 [facility] Day Surgery [id number] Yamilex Hernandez 02/19/2016 02/19/2016 [facility] [place] Out[facility] Diag Services [id number] Cheli Smith 01/08/2017 [facility]/09/2017 [facility] [id number] Cheli Smith 02/23/2017 02/24/2017 [place] [facility] - [id number] MORGAN MccormackP-C: [address] [address], Ph. [id number] Lisa Alberto 05/17/2017 [facility] Outpatient [facility] [place] [facility] [id number] Cheli Smith 07/03/2017 07/04/2017 [facility] [place] [facility] Outpatient Imaging - [place] [facility] Di[facility] [id number] Cheli Smith 09/14/2017 09/15/2017 [facility] [place] [facility] Emergency [id number] Raman Olea 10/09/2017 10/09/2017 [facility] Day Surgery [id number] Anny Mckeon 10/13/2017 10/13/2017 [facility] Outpatient Imaging [facility] Outpt Diag Services [id number] Leona Serrano 01/29/2018 01/30/2018 [facility] Orthopedic [facility] Spine [facility] Day Surgery [id number] Anny Mckeon 02/05/2018 02/06/2018 [facility] [place] [facility] - [id number] Mavis Rodríguez, RADIO ELECTRICIAN-C: [address] [address], Ph. [id number] Mavis Rodríguez 09/25/2018 [facility] Procedures Procedure Code Date Perfomer Comments Source Cholecystectomy [id number] [facility] [place] [facility] [id number] [facility] [place] Tubal ligation [id number] [facility] [place] Cholecystectomy [id number] [facility] [place] Operation [id number] [facility] [place] Tubal ligation [id number] [facility] [place] Cholecystectomy [id number] [facility] [id number] [facility] Tubal ligation [id number] [facility] Cholecystectomy [id number] [facility] [id number] [facility] Tubal ligation [id number] [facility] Cholecystectomy [id number] [facility] [id number] [facility] Tubal ligation [id number] [facility] Cholecystectomy [id number] [facility] [place] Operation [id number] [facility] [place] Tubal ligation [id number] [facility] [place] Cholecystectomy [facility] Tubal Ligation [facility]
--- OUTSIDE RECORDS SUMMARY | 2018-11-09 06:49 | XMS REPORT | Summary of Care ---
Author Author [facility] Organization [facility] Address Unknown Phone Unavailable Encounter ROSE Jara(KENA) [id number] Date(s): 02/19/16 - 02/19/16 [facility] [address] [place] [address]- [phone] Discharge Disposition: Home or Self Care Attending Physician: Yamilex Hernandez MD Referring Physician: Yamilex Hernandez MD Vital Signs 1 2 3 Most recent to oldest [Reference Range]: 170.18 cm (02/13/16 10:03 AM) Height 97.8 DegF (02/13/16 10:03 AM) Temperature Oral [96.4-99.1 DegF] 133/79 mmHg (02/19/16 10:30 AM) 138/79 mmHg (02/19/16 10:15 AM) 134/74 mmHg (02/19/16 9:45 AM) Blood Pressure [90-140/60-90 mmHg] 21 BRMIN *HI* (02/19/16 9:45 AM) 13 BRMIN *LOW* (02/19/16 9:30 AM) 19 BRMIN (02/19/16 9:15 AM) Respiratory Rate [14-20 BRMIN] 66 bpm (02/13/16 10:03 AM) Peripheral Pulse Rate [60-100 bpm] 95.455 kg (02/13/16 10:03 AM) Weight 32.96 m2 (02/13/16 10:03 AM) Body Mass Index Problem List Condition Effective Dates Status Health Status Informant Allergic Resolved rhinitis(Confirmed) Biliary calculus1 06/21/13 Active Contact Resolved dermatitis(Confirmed ) Diabetes mellitus Active type 2(Confirmed) Glaucoma(Confirmed) Resolved Obesity2 06/21/13 Active Right upper quadrant 06/21/13 Active pain3 Sickle cell Active trait(Confirmed) Sleep Active apnea(Confirmed)4 1Data migrated from [employer] on 10/24/14. 2Data migrated from [employer] on 10/24/14. 3Data migrated from [employer] on 10/24/14. 4uses CPAP Allergies, Adverse Reactions, Alerts Substance Reaction Severity Status NKDA Active Medications albuterol-ipratropium 2.5-0.5 mg inhalation solution 3 mL, Route: NEB, Dosing Weight 95.455, kg, ONCE, STAT, Start date: 02/19/16 7:3 2:00 CDT, Stop date: 02/19/16 7:32:00 CDT Start Date: 02/19/16 Stop Date: 02/19/16 Status: Discontinued ANES acetaminophen 1,000 mg, Route: PO, Drug form: TAB, ONCE, Dosing Weight 95.455, kg, PRN Pain Sc ore 1-3, Start date: 02/19/16 8:50:00 CDT, Duration: 1 doses or times, Stop date : Limited # of times Start Date: 02/19/16 Stop Date: 02/19/16 Status: Discontinued ANES diphenhydrAMINE 12.5 mg, Route: IVP, Drug form: INJ, Q6H, Dosing Weight 95.455, kg, PRN Itching, Start date: 02/19/16 8:50:00 CDT, Duration: 30 day, Stop date: 03/20/16 8:49:00 CDT Start Date: 02/19/16 Stop Date: 02/19/16 Status: Discontinued ANES esmolol 10 mg, Route: IVP, Q5Min, Dosing Weight 95.455, kg, PRN Other -See Comment, Star t date: 02/19/16 8:50:00 CDT, Duration: 5 doses or times, Stop date: Limited # o f times Start Date: 02/19/16 Stop Date: 02/19/16 Status: Discontinued ANES fentaNYL 50 microgram, Route: IVP, Q5Min, Dosing Weight 95.455, kg, PRN Pain Score 7-10, Start date: 02/19/16 8:50:00 CDT, Duration: 2 doses or times, Stop date: Limited # of times Start Date: 02/19/16 Stop Date: 02/19/16 Status: Discontinued ANES fentaNYL 25 microgram, Route: IVP, Q5Min, Dosing Weight 95.455, kg, PRN Pain Score 4-6, S tart date: 02/19/16 8:50:00 CDT, Duration: 4 doses or times, Stop date: Limited # of times Start Date: 02/19/16 Stop Date: 02/19/16 Status: Discontinued ANES flumazenil 0.2 mg, Route: IVP, PRN, Dosing Weight 95.455, kg, PRN Benzodiazepine Reversal, Initial dose, Start date: 02/19/16 8:50:00 CDT, Duration: 30 day, Stop date: 8:49:00 CDT Start Date: 02/19/16 Stop Date: 02/19/16 Status: Discontinued ANES hydrALAZINE 10 mg, Route: IVP, Q20Min, Dosing Weight 95.455, kg, PRN Elevated BP, Start date : 02/19/16 8:50:00 CDT, Duration: 2 doses or times, Stop date: Limited # of time s Start Date: 02/19/16 Stop Date: 02/19/16 Status: Discontinued ANES HYDROmorphone 0.5 mg, Route: IVP, Q5Min, Dosing Weight 95.455, kg, PRN Pain Score 7-10, Start date: 02/19/16 8:50:00 CDT, Duration: 4 doses or times, Stop date: Limited # of times Start Date: 02/19/16 Stop Date: 02/19/16 Status: Discontinued ANES labetalol 10 mg, Route: IVP, Q5Min, Dosing Weight 95.455, kg, PRN Elevated BP, Start date: 02/19/16 8:50:00 CDT, Duration: 5 doses or times, Stop date: Limited # of times Start Date: 02/19/16 Stop Date: 02/19/16 Status: Discontinued ANES meperidine 12.5 mg, Route: IVP, Q30Min, Dosing Weight 95.455, kg, PRN Other -See Comment, F or shivering, Start date: 02/19/16 8:50:00 CDT, Duration: 2 doses or times, Stop date: Limited # of times Start Date: 02/19/16 Stop Date: 02/19/16 Status: Discontinued ANES naloxone 0.4 mg, Route: IVP, Q2MIN, Dosing Weight 95.455, kg, PRN Narcotic Reversal, Star t date: 02/19/16 8:50:00 CDT, Duration: 8 doses or times, Stop date: Limited # o f times Start Date: 02/19/16 Stop Date: 02/19/16 Status: Discontinued ANES ondansetron 4 mg, Route: IVP, ONCE, Dosing Weight 95.455, kg, PRN Nausea & Vomiting, Start date: 02/19/16 8:50:00 CDT Start Date: 02/19/16 Stop Date: 02/19/16 Status: Discontinued ANES oxyCODONE 5 mg, Route: PO, Drug form: TAB, Q4H, Dosing Weight 95.455, kg, PRN Pain Score 4 -6, Start date: 02/19/16 8:50:00 CDT, Duration: 30 day, Stop date: 03/20/16 8:49 :00 CDT Start Date: 02/19/16 Stop Date: 02/19/16 Status: Discontinued ANES oxyCODONE 10 mg, Route: PO, Drug form: TAB, Q4H, Dosing Weight 95.455, kg, PRN Pain Score 7-10, Start date: 02/19/16 8:50:00 CDT, Duration: 30 day, Stop date: 03/20/16 8: 49:00 CDT Start Date: 02/19/16 Stop Date: 02/19/16 Status: Discontinued ANES promethazine 6.25 mg, Route: IVPB, ONCE, Dosing Weight 95.455, kg, PRN Nausea & Vomiting, Start date: 02/19/16 8:50:00 CDT Start Date: 02/19/16 Stop Date: 02/19/16 Status: Discontinued ceFAZolin (ANES) Route: IV, Drug form: INJ, ONCE, Stop date: 02/19/16 8:25:00 CDT Start Date: 02/19/16 Stop Date: 02/19/16 Status: Completed dexamethasone (ANES) Route: IV, Drug form: INJ, ONCE, Stop date: 02/19/16 8:35:00 CDT Start Date: 02/19/16 Stop Date: 02/19/16 Status: Completed fentaNYL (ANES) Route: IV, Drug form: INJ, ONCE, Stop date: 02/19/16 8:25:00 CDT Start Date: 02/19/16 Stop Date: 02/19/16 Status: Completed Insulin regular 3 unit, Route: IV, ONCE, Dosing Weight 95.455, kg, Start date: 02/19/16 13:40:00 CDT, Stop date: 02/19/16 13:40:00 CDT Start Date: 02/19/16 Stop Date: 02/19/16 Status: Completed ketOROLAC (ANES) IV, ONCE Start Date: 02/19/16 Stop Date: 02/19/16 Status: Completed Lactated Ringers Injection IV 1000 mL 1,000 mL, Rate: 125 ml/hr, Infuse over: 8 hr, Route: IV, Dosing Weight 95.455 kg , Total Volume: 1,000, Start date: 02/19/16 8:50:00 CDT, Duration: 30 day, Stop date: 03/20/16 8:49:00 CDT Start Date: 02/19/16 Stop Date: 02/19/16 Status: Discontinued Lactated Ringers Injection IV 1000 mL 1,000 mL, Rate: 25 ml/hr, Infuse over: 40 hr, Route: IV, Dosing Weight 95.455 kg , Total Volume: 1,000, Start date: 02/19/16 7:32:00 CDT, Duration: 30 day, Stop date: 03/20/16 7:31:00 CDT Start Date: 02/19/16 Stop Date: 02/19/16 Status: Discontinued lidocaine (ANES) Route: IV, Drug form: INJ, ONCE, Stop date: 02/19/16 8:25:00 CDT Start Date: 02/19/16 Stop Date: 02/19/16 Status: Completed LR 1000 mL INJ (ANES) Route: IV, Total Volume: 1,000, Start date: 02/19/16 7:33:00 CDT, Stop date: 8:33:00 CDT Start Date: 02/19/16 Stop Date: 02/19/16 Status: Completed midazolam (ANES) Route: IV, Drug form: SOLN, ONCE, Stop date: 02/19/16 8:10:00 CDT Start Date: 02/19/16 Stop Date: 02/19/16 Status: Completed Motrin 600 mg oral tablet 600 mg=1 tab, PO, Q6H, PRN Pain, take with food, # 30 tab, 0 Refill(s) Start Date: 02/19/16 Stop Date: 03/20/16 Status: Ordered ondansetron (ANES) Route: IV, Drug form: INJ, ONCE, Stop date: 02/19/16 8:35:00 CDT Start Date: 02/19/16 Stop Date: 02/19/16 Status: Completed propofol (ANES) Route: IV, Drug form: INJ, ONCE, Stop date: 02/19/16 8:25:00 CDT Start Date: 02/19/16 Stop Date: 02/19/16 Status: Completed Sodium Chloride 0.9% IV 500 mL 500 mL, Rate: 125 ml/hr, Infuse over: 4 hr, Route: IV, Dosing Weight 95.455 kg, Total Volume: 500, Start date: 02/19/16 8:50:00 CDT, Duration: 30 day, Stop date : 03/20/16 8:49:00 CDT Start Date: 02/19/16 Stop Date: 02/19/16 Status: Discontinued Sodium Chloride 0.9% IV 500 mL 500 mL, Rate: 25 ml/hr, Infuse over: 20 hr, Route: IV, Dosing Weight 95.455 kg, Total Volume: 500, Start date: 02/19/16 7:32:00 CDT, Duration: 30 day, Stop date : 03/20/16 7:31:00 CDT Start Date: 02/19/16 Stop Date: 02/19/16 Status: Discontinued Results BLOOD BANK RESULTS Most recent to 1 oldest [Reference Range]: ABO/Rh O POS *Unknown* (02/13/16 10:24 AM) Antibody Scrn Negative (02/13/16 10:24 AM) ELECTROLYTES Most recent to 1 oldest [Reference Range]: Sodium Lvl [135-145 139 mEq/L mEq/L] (02/13/16 10:24 AM) Potassium Lvl 3.8 mEq/L [3.5-5.1 mEq/L] (02/13/16 10:24 AM) Chloride Lvl [95-109 106 mEq/L mEq/L] (02/13/16 10:24 AM) CO2 [24-32 mEq/L] 26 mEq/L (02/13/16 10:24 AM) AGAP [10.0-20.0 10.8 mEq/L mEq/L] (02/13/16 10:24 AM) CHEM PANEL Most recent to 1 oldest [Reference Range]: Creatinine Lvl 0.68 mg/dL [0.50-1.40 mg/dL] (02/13/16 10:24 AM) eGFR 114 mL/min/1.73m2 1 *NA* (02/13/16 10:24 AM) BUN [7-22 mg/dL] 13 mg/dL (02/13/16 10:24 AM) B/C Ratio [6-25] 19 (02/13/16 10:24 AM) Glucose Lvl [70-99 204 mg/dL mg/dL] *HI* (02/13/16 10:24 AM) Total Protein 7.8 g/dL [6.4-8.4 g/dL] (02/13/16 10:24 AM) Albumin Lvl [3.5-5.0 3.6 g/dL g/dL] (02/13/16 10:24 AM) Globulin [2.7-4.2 4.2 g/dL g/dL] (02/13/16 10:24 AM) A/G Ratio [0.7-1.6] 0.9 (02/13/16 10:24 AM) Calcium Lvl 8.9 mg/dL [8.5-10.5 mg/dL] (02/13/16 10:24 AM) ALT [0-65 unit/L] 19 unit/L (02/13/16 10:24 AM) AST [0-37 unit/L] 15 unit/L (02/13/16 10:24 AM) Alk Phos [39-136 78 unit/L unit/L] (02/13/16 10:24 AM) Bili Total [0.2-1.3 0.2 mg/dL mg/dL] (02/13/16 10:24 AM) 1Result Comment: The eGFR is calculated using the [...] from the National Kidney Disease Education Program ( NKDEP) which additionally recommends that when the eGFR is used in patients with extremes of body mass index for purposes of drug dosing, the eGFR should be mul tiplied by the estimated BMI. HEMATOLOGY Most recent to 1 oldest [Reference Range]: WBC [3.7-10.4 K/CMM] 5.7 K/CMM (02/13/16 10:24 AM) RBC [4.20-5.40 4.56 M/CMM M/CMM] (02/13/16 10:24 AM) Hgb [12.0-16.0 g/dL] 11.1 g/dL *LOW* (02/13/16:24 AM) Hct [36.0-48.0 %] 34.2 % *LOW* (02/13/16 10:24 AM) MCV [80.0-98.0 fL] 75.1 fL *LOW* (02/13/16:24 AM) MCH [27.0-31.0 pg] 24.4 pg *LOW* (02/13/16 10:24 AM) MCHC [32.0-36.0 32.5 g/dL g/dL] (02/13/16 10:24 AM) RDW [11.5-14.5 %] 16.7 % *HI* (02/13/16 10:24 AM) Platelet [133-450 210 K/CMM K/CMM] (02/13/16 10:24 AM) MPV [7.4-10.4 fL] 8.8 fL (02/13/16 10:24 AM) Segs [45.0-75.0 %] 60.6 % (02/13/16 10:24 AM) Lymphocytes 30.7 % [20.0-40.0 %] (02/13/16 10:24 AM) Monocytes [2.0-12.0 5.7 % %] (02/13/16 10:24 AM) Eosinophils [0.0-4.0 1.7 % %] (02/13/16 10:24 AM) Basophils [0.0-1.0 1.3 % %] *HI* (02/13/16 10:24 AM) Segs-Bands # 3.4 K/CMM [1.5-8.1 K/CMM] (02/13/16 10:24 AM) Lymphocytes # 1.7 K/CMM [1.0-5.5 K/CMM] (02/13/16 10:24 AM) Monocytes # [0.0-0.8 0.3 K/CMM K/CMM] (02/13/16 10:24 AM) Eosinophils # 0.1 K/CMM [0.0-0.5 K/CMM] (02/13/16 10:24 AM) Basophils # [0.0-0.2 0.1 K/CMM K/CMM] (02/13/16 10:24 AM) Microcyte [None 1+ Seen] *ABN* (02/13/16 10:24 AM) Immunizations No data available for this section Procedures Procedure Date Related Diagnosis Body Site Cholecystectomy Operation Operation Tubal ligation Social History Social History Type Response Substance Abuse Use: None. Alcohol Never Smoking Status Never smoker; Exposure to Tobacco Smoke None; Cigarette Smoking Last 365 Days No; Reg Smoking Cessation Counseling No Assessment and Plan Extracted from: Title: Clinical Document Author: Yamilex Hernandez Date: 02/19/16 MD [facility] Pre Op H&P HPI: Ms Salazar is a 55yo AAF who presents for hidradenitis of the vulva. Pt with longstanding history of the issue and states she has been having "bumps" on her pubic region since the age of 15. She has had multiple episodesof outbreaks ofthe bilateral axillae s/p hidradenitis resection. She gets multiple nodules that begin as hard tender nodules and then that drain. Desires removal of lesion of vulva. Constitutional Symptoms: - fever, - weight loss, - weight gain, - fatigue, - malaise Eyes: - diplopia, - blurred vision, - redness, - discharge, - loss of vision Ears, Nose, Mouth, Throat: - dysphagia, - odynophagia, - otalgia, - deafness, - rhinorrhea Cardiovascular: - chest pain, - SOB, - ALCARAZ, - orthopnea, - PND, - poor exercise tolerance, - palpitations Respiratory: - same as CVS, - cough, - hemoptysis Gastrointestinal: - NVD, - BPR, - dark stool, - constipation, - abdominal pain Genitourinary: - dysuria, - frequency, - urgency, - nocturia, - incontinence Musculoskeletal: - arthralgia, - myalgia, - stiffness Integumentary (skin and/or breast): - rash, - hives, - breast pain, - mass, - nipple dc Neurological: - weakness, - headache, - seizure, - dizziness, - tingling, - numbness Psychiatric: - anxiety, - depression, - insomnia Endocrine: - polyuria, - polydipsia, - fatigue, - weight loss, - weight gain, - cold or heat intolerance, - palpitations Hematologic/Lymphatic: - bleeding, - bruising, - edema, - lumps (axilla groin neck) Allergic/Immunologic: - rash, - allergies, - fever, - chills PMH: DM2, Sleep Apnea, SCT, Alpha Thalessemia PSH: BTL, Cholecystectomy, Axillary resection of hidradenitis Meds: Glimiperide, Metformin, MVI, B12 All: KNDA SHx: Denies x3 FHx: CAD- Father, h/o HTN, RA PE: VitalsTmp(F)Tmp(C)[id number] 02/18 06:[id number]/57---[id number]------ 24 Hr Tmax: 98.1F (36.72c) at 02/18 06:45Vital Signs are the last 5 in the past 48 hours. 24 Hr Tmin: 98.1F (36.72c) at 02/18 06:45Weights are the last 5 in 60 days, plus initial. DateWt(kg)Wt(lb)Ht(cm)Ht(in)MethodBMIBSA 02/12 (initial) 95.45 210.00Measured 33.02.12 .18 67.00Stated Gen: NAD Lungs: CTAB CV: RRR no m/g/r Abd: Soft, NT/ND, +BS Vacm area to the mons with 2 hard, non- tender abscessesnoted with draining. A/P: Ms Salazar is a 55yo AAF who presents for hidradenitis of the vulva. 1. Hidradenitis- Pt with chronic h/o hidradenitis with two lesions of the vulva unable to be drained in clinic. Pt desires to proceed with excision under general anesthesia. R/B/A discussed with pt to include pain, infection, bleeding,recurrence. Pt for surgery today Randee Pinon MD PGY-2
--- OUTSIDE RECORDS SUMMARY | 2018-11-09 06:49 | XMS REPORT | Summary of Care ---
Author Organization Unknown Address Unknown Phone Unavailable Care Team Providers Care Fire Prevention Specialist Name Role Phone Austen Hopson PCP Unavailable Encounter Patfracisco_vanessa(KENA) [id number] Date(s): 01/19/14 - 01/19/14 [facility] Outpatient Imaging - [address] [address] [place] Discharge Disposition: Home Physician Attending: Ivan Gabriel MD Reason for Visit 250.0 - DIABETES MELLIT Problem List Condition Effective Dates Status Health Status Informant Diabetes mellitus Resolved type 2(Confirmed) Sleep Resolved apnea(Confirmed)1 1uses CPAP Allergies, Adverse Reactions, Alerts Substance Reaction Severity Status NKDA Active Medications No data available for this section Medications Administered During Your Visit No data available for this section Immunizations No data available for this section Social History Social History Type Response Smoking Status Never smoker, Exposure to Tobacco Smoke None, Cigarette Smoking Last 365 Days No, Reg Smoking Cessation Counseling No
--- OUTSIDE RECORDS SUMMARY | 2018-11-09 06:49 | XMS REPORT | Summary of Care ---
Author Author [facility] Organization [facility] Address Unknown Phone Unavailable Encounter HQ Angelica_vanessa(FIN) [id number] Date(s): 02/23/17 - 02/23/17 [facility] [address] [place] [address]- Discharge Disposition: Home or Self Care Attending Physician: Cheli Smith MD Referring Physician: Cheli Smith MD Vital Signs No data available for this section Problem List Condition Effective Dates Status Health [...] Medications No data available for this section Results No data available for this section Immunizations No data available for this section Procedures Procedure Date Related Diagnosis Body Site Cholecystectomy Operation Operation Tubal ligation Social History Social History Type Response Substance Abuse Use: None. Alcohol Never Smoking Status Never smoker; Exposure to Tobacco Smoke None; Cigarette Smoking Last 365 Days No; Reg Smoking Cessation Counseling No Assessment and Plan No data available for this section
--- OUTSIDE RECORDS SUMMARY | 2018-11-09 06:49 | XMS REPORT | Continuity of Care Document ---
Author Author [facility] Organization [facility] Address Unknown Phone Unavailable Care Team Providers Care Lead Custodian Name Role Phone MD Marshall, Kuldip WILLIAMSON Unavailable Insurance Providers Payer name Policy type / Coverage type Policy ID Covered alliance party ID Policy [place] [facility] (POS) Encounters Encounter Performer Location Date Lab Report Kuldip Olivares MD [facility] [place] Aug 10, 2013 Problems Problem Effective Dates Problem Status CHOLELITHIASIS Jun 21, 2013 Active OBESITY Jun 21, 2013 Active ABDOMINAL PAIN, RIGHT UPPER QUADRANT Jun 21, 2013 Active Procedures Date Description Comments Jun 21, 2013 smoking status never smoker Medications Medication Instructions Start Date Status METFORMIN HCL 500 MG TABS Jun 21, 2013 Active GLIMEPIRIDE TABS Jun 21, 2013 Active MULTIVITAMINS CAPS Jun 21, 2013 Active B-12 1000 MCG CAPS Jun 21, 2013 Active Vital Signs Date Description Test Result Jun 21, 2013 temperature E&M TEMPERATURE 98.5 deg f Jun 21, 2013 weight E&M - 3141-9 WEIGHT 187 lb Jun 21, 2013 pulse rate E&M - 8867-4 PULSE RATE 64 /min Jun 21, 2013 blood pressure, systolic - 8480-6 BP SYSTOLIC 104 mm Hg Jun 21, 2013 blood pressure, diastolic - 8462-4 BP DIASTOLIC 71 mm Hg Jun 21, 2013 height E&M - 8302-2 HEIGHT 67 in Aug 04, 2013 weight E&M - 3141-9 WEIGHT 179 lb Aug 04, 2013 temperature E&M TEMPERATURE 98.1 deg f Aug 04, 2013 pulse rate E&M - 8867-4 PULSE RATE 68 /min Aug 04, 2013 blood pressure, systolic - 8480-6 BP SYSTOLIC 119 mm Hg Aug 04, 2013 blood pressure, diastolic - 8462-4 BP DIASTOLIC 77 mm Hg
--- OUTSIDE RECORDS SUMMARY | 2018-11-09 06:49 | XMS REPORT | Encounter Summary ---
Author Organization Unknown Address [address] [place] [address] Phone [phone] Care Team Providers Care Masonry Contractor Name Role Phone Cheli Smith 3 [phone] Reason for Visit Medical Complaint Instructions 1. Acute sinusitis sinusitis: care instructions azithromycin 250 mg tablet 2. Diarrhea diarrhea: care instructions rapid flu (A+B) 3. Diabetes mellitus type 2 diabetes: care instructions 4. Productive cough peak flow benzonatate 200 mg capsule albuterol sulfate 2.5 mg/3 mL (0.083 %) solution for nebulization peak flow 5. Allergic rhinitis allergies: care instructions managing your allergies: care instructions fluticasone propionate 50 mcg/actuation nasal spray,suspension 6. Immunization due 7. Body mass index 30+ - obesity body mass index: care instructions learning about healthy weight Discussion Note: None recorded. Plan of Care Patient Instructions Sinus Infection- Bacterial You have a bacterial infection causing a sinus infection. Take antibiotics only as prescribed. Once starting an antibiotic course, finish the entire course unless otherwise indicated by a medical professional. If you develop a reaction to the medication, including rash, hives, swelling of throat, and/or difficulty breathing, stop immediately and seek medical care. Take a daily probiotic or eat a daily yogurt. Use OTC (over the counter) and prescription medications as directed. If symptoms continue to worsen instead of improve, or worsening cough or sinus pain, shortness of breath, thick mucus, or other concerning symptoms develop, call or visit [facility] or your PCP (primary care provider) for further care. Seek immediate medical attention (ER or 911) if difficulty breathing, chest pain, chest pressure, severe headache, neck pain or other concerning symptoms develop. If you have any need to contact [facility], including questions or concerns, please contact or . Diarrhea Use OTC (over the counter) or prescribed medications as directed Only use Imodium OTC if recommended- do not use if you have bloody diarrhea, high fever, or other signs of illness Eat a bland diet, including rice, bananas, apples, toast Take a daily probiotic or eat a daily yogurt with live cultures If diarrhea is occurring, slowly reintroduce liquids by taking small, frequent sips of water until no diarrhea occurs for 1-3 hours. Then, reintroduce solids by taking small bites of bland food. Avoid spicy foods, alcohol, and caffeine until 48 hours after symptoms are gone. If symptoms worsen or do not improve, or rash, abdominal pain, vomiting, continued diarrhea, dizziness, excessive thirst, dark or decreasing amounts of urine, loss of consciousness, or other concerning symptoms develop, seek medical attention If you have any need to contact [facility], including questions or concerns, please contact or Reminders Provider Appointments None recorded. Lab Rapid Flu (A+B) 09/25/2018 [facility] Referral None recorded. Procedures None recorded. Surgeries None recorded. Imaging None recorded. Medications Name Start Date albuterol sulfate 2.5 mg/3 mL (0.083 %) solution for nebulization Inhale 3 mL by nebulization route. atorvastatin 10 mg tablet TAKE 1 TABLET BY MOUTH EVERY DAY azithromycin 250 mg tablet TAKE 2 TABLETS (500 MG) with food today and starting tomorrow 1 TABLET (250 MG) with LUNCH ONCE DAILY FOR 4 DAYS benzonatate 200 mg capsule Take 1 capsule 3 times a day by oral route as needed for 10 days. colestipol 1 gram tablet TK 1 T PO D IN THE MORNING fluticasone propionate 50 mcg/actuation nasal spray,suspension Purdys 1 spray twice a day by intranasal route as directed for 10 days. glimepiride 1 mg tablet TAKE ONE AND ONE HALF TABLET BY MOUTH 2 TIMES A DAY WITH BREAKFAST AND EVENING MEAL hydrocodone 5 mg-acetaminophen 325 mg tablet TK 1 T PO Q 6 H PRF PAIN losartan metformin ER 500 mg tablet,extended release 24 hr TAKE 2 TABLETS BY MOUTH IN THE MORNING AND 1 TABLET WITH THE EVENING MEAL multivitamin naproxen 500 mg tablet TAKE 1 TABLET BY MOUTH TWICE A DAY Vitamin D3 2,000 unit capsule Medications Administered Name Date albuterol sulfate 2.5 mg/3 mL (0.083 %) solution for nebulization Inhale 3 mL by nebulization route. [id number] Vitals Height Weight BMI Blood Pressure 5 ft 7 in 208 lbs 32.6 kg/m2 118/70 mm[Hg] Lab Results Date Name Specimen Result Interpretation Description Value Range Status Address 09/25/2018 Peak Flow Pef 58% [facility]: [facility] Percent Predicted Value 250 [facility]: [facility] Peak Flow Pef 260 [facility]: [facility] Percent Predicted Value 60% [facility]: [facility] Rapid Flu (A+B) Influenza a negative [facility]: [facility] Influenza B negative [facility]: [facility] Allergies Code Code System Name Reaction Severity Status Onset NKDA Problems No Known Problems Procedures Date Name Performed by Cholecystectomy Information not available Tubal Ligation Information not available Vaccine List Vaccine Type Hep A, adult 03/25/2017 influenza, unspecified formulation 02/22/2017 Tdap 05/25/2011 Social History Smoking Status Never Smoker Past Encounters 09/25/2018 Acute Sinusitis; Diarrhea; Diabetes Mellitus; Productive Cough; Allergic Rhinitis; Immunization Due; Body Mass Index 30+ - Obesity Mavis Rodríguez, VP [employer]GAN[employer]OPMENT-C: [address] [place] [address], Ph. History of Present Illness Ejxjj-Cosztgnets-Bpsatfw Reported By: Patient HPI: Location: head/sinuses, chest. Quality: productive cough, sore throat, colored phlegm, nasal/sinus congestion. Duration: 4days. Onset/Timing: gradual. Context: no sick contacts, no foreign travel, non-smoker. Modifying factors: OTC medication. Associated Symptoms: no shortness of breath, no wheezing, no change in number of pillows needed to sleep at night, no sweats, no significant weight gain, no significant weight loss, no morning cough, no vomiting, no rash, no nausea, no fever, yellow sputum, fatigue, diarrhea, fever Review of Systems Basic Reported By: Patient Wmuj-Oscd-Rncms-Throat: Ears: no ear complaints Neurologic: Neurologic: no dizziness Physical Exam Adult Basic, Adult Female Complete Reported By: Patient Constitutional: General Appearance: obese. Level of Distress: NAD. Ambulation: ambulating normally Psychiatric: Mental Status: active and alert. Orientation: to time, to place, to person Eyes: Lids and Conjunctivae: non-injected, no discharge, no pallor. Pupils: PERRLA. Sclerae: non-icteric Lxq-Ijko-Ylyww-Throat: Ears: no lesions on external ear, no outer ear tenderness, EACs clear, TMs clear. Hearing: no hearing loss. Nose: no lesions on external nose, nares patent, no septal deviation, nasal passages clear, sinus tenderness, nasal discharge--rhinorrhea, post nasal drip. Lips, Teeth, and Gums: no mouth or lip ulcers. Oropharynx: moist mucous membranes, no erythema, no exudates, tonsils not enlarged Neck: Neck: supple. Lymph Nodes: anterior cervical LAD Lungs: Respiratory effort: no dyspnea, no tachypnea, no use of accessory muscles, no intercostal retractions. Auscultation: breath sounds normal Cardiovascular: Heart Auscultation: RRR, no murmurs Neurologic: Gait and Station: normal gait, normal station Skin: Inspection and palpation: no rash, no lesions, no ulcer, no abnormal nevi, no induration, no nodules, good turgor, no jaundice; on visible skin Abdomen: Bowel Sounds: normal. Inspection and Palpation: soft, non-distended, no tenderness, no guarding, no rebound tenderness, no masses. Liver: non-tender, no hepatomegaly. Spleen: non-tender, no splenomegaly
--- OUTSIDE RECORDS SUMMARY | 2018-11-09 06:49 | XMS REPORT | Encounter Summary ---
Author Organization Unknown Address [address] [place] [address] Phone [phone] Care Team Providers Care Toucher Up Name Role Phone Cheli Smith 3 [phone] Reason for Visit Medical Complaint Instructions 1. Furuncle cephalexin 500 mg tablet Bactrim DS 800 mg-160 mg tablet 2. Diarrhea diarrhea: care instructions rapid flu (A+B) 3. Diabetes mellitus glucose, fingerstick, blood Discussion Note Pt is in NAD; Verbalizes understanding of all instructions with no questions at this time. Plan of Care Patient Instructions Stay hydrated, eat a liquid diet for the first four hours. Stay away from fried and spicy foods until symptoms resolve. If you do experience improvement in your symptoms within the next four hours, advance yourself to a carbohydrate-rich diet such as white rice, white bread, and crackers. Within the next four hours thereafter, you can advance to lean meats such as chicken, fish, and turkey. Four hours thereafter if symptoms do improve, then advance to a regular diet. Take over the counter imodium as per package insert for diarrhea. If no improvement follow up with your PCP or GI specialist within the next week. Keep left breast area clean and dry. Clean with soap and water twice a day, pat dry. Take antibiotics as directed. Take medications as prescribed. Return to clinic or follow up with your PCP within 2-3 days if symptoms worsen as discussed. In case of emergency: worsening swelling or redness, tingling/numbness/loss of sensation and purple discoloration call 911 or go to nearest ER. Recommend monitor BP and blood sugar at home and document, bring BP and blood sugar log to PCP for review. Continue medications as directed and do not skip meals. I Recommend follow a low sodium/carb/fat diet and exercise 30-45 mins/d 3-4 days a week Reminders Provider Appointments None recorded. Lab Rapid Flu (A+B) 05/17/2017 [facility] Glucose, Fingerstick, Blood 05/17/2017 [facility] Referral None recorded. Procedures None recorded. Surgeries None recorded. Imaging None recorded. Medications Name Start Date atorvastatin 10 mg tablet TAKE 1 TABLET BY MOUTH EVERY DAY Bactrim DS 800 mg-160 mg tablet Take 1 tablet every 12 hours by oral route as directed for 10 days. cephalexin 500 mg tablet Take 1 tablet every 12 hours by oral route as directed for 10 days. colestipol 1 gram tablet TK 1 T PO D IN THE MORNING FreeStyle [place] Lite kit USE DIRECTED FreeStyle Lite Strips USE DAILY DIRECTED glimepiride 1 mg tablet TAKE 1 TABLET BY MOUTH TWICE A DAY metformin ER 500 mg tablet,extended release 24 hr TAKE 2 TABLETS BY MOUTH IN THE MORNING AND 1 TABLET WITH THE EVENING MEAL multivitamin naproxen 500 mg tablet TAKE 1 TABLET BY MOUTH TWICE A DAY Vitamin D3 2,000 unit capsule Medications Administered None recorded. Vitals Height Weight BMI Blood Pressure 5 ft 7 in 210 lbs 32.9 kg/m2 122/80 mm[Hg] Lab Results Date Name Specimen Result Interpretation Description Value Range Status Address Glucose, Fingerstick, Blood Results 118 [facility]: [address] [place] [address] Rapid Flu (A+B) Influenza a negative [facility]: [address] [place] [address] Influenza B negative [facility]: [address] [place] [address] Allergies Code Code System Name Reaction Severity Status Onset NKDA Problems Name Status Onset Date Source Viral Enteritis Active Encounter Acute Upper Respiratory Infection Active Encounter Gastroenteritis Active Encounter Constipation Active Encounter Procedures Date Name Performed by Cholecystectomy Information not available Tubal Ligation Information not available Vaccine List Vaccine Type Hep A, adult 03/25/2017 influenza, unspecified formulation 02/22/2017 Tdap 05/25/2011 Social History Smoking Status Never Smoker Past Encounters 05/17/2017 Furuncle; Diarrhea; Diabetes Mellitus Lisa Alberto, HEALTH INFORMATICS SPECIALIST-C: [address] [place] [address], Ph. History of Present Illness Czthct-Xkmumocq-Ljtxgktp / Abdominal Pain Reported By: Patient HPI: Quality: watery, intermittent. Severity: moderate. Duration: present for < 1 week, symptoms last for how long?. Onset/Timing: gradual onset, 1-3 times a day. Context: no one else with similar symptoms, no recent camping, no recent picnic, no possible food sources, no recent travel, has had a colonoscopy; Pt reports she has h/o fecal incontinence and constipation. She is currently on metformin and colestipol and reports she has never had diarrhea with these meds. Alleviating factors: better with fasting. Aggravating factors: eating. Associated Symptoms: no abdominal pain, no excess gas, no fever/chills, no rash, no joint pain, no weight loss, no vomiting, no heartburn, no blood in stool, no mucus in stool, no black or tarry stools, no weakness, no nutrient deficiency, no headache, no feeling of fullness/mass in throat, no muscle aches, no bitter taste in the mouth, no difficulty swallowing (dysphagia); watery diarrhea Wnqg-Rwhindo-Ibivt-Skin Lesion-Bite 1 Reported By: Patient HPI: Location: ; left breast. Quality: not itchy, painful, tender, red, multiple, localized, swollen, repeated infections. Severity: worsening, moderate. Duration: has noted for 1-2 weeks. Onset/Timing: gradual onset, recurring. Context: no new detergents or skin products, no one else with similar rash, no sting or bite, scratching; Last mammogram and breast US normal per pt. Aggravating factors: clothing. Alleviating factors: nothing gives relief. Associated Symptoms: no fever/chills, no muscle aches, no headache, no cold symptoms, no nausea, no vomiting, no urinary symptoms, diarrhea Review of Systems:ROS as noted in the HPI Review of Systems Basic Reported By: Patient Physical Exam Adult Basic, 14-21 Yr Male, Adult Female Complete, Adult Male Complete, 11-13 Yr Females Reported By: Patient Constitutional: General Appearance: healthy-appearing, well-nourished, well-developed. Level of Distress: NAD. Ambulation: ambulating normally Psychiatric: Mental Status: active and alert, normal affect, normal mood. Orientation: to time, to place, to person Eyes: Lids and Conjunctivae: non-injected, no discharge, no pallor. Lens: clear. Sclerae: non-icteric Kfu-Tfka-Qdhvr-Throat: Lips, Teeth, and Gums: no mouth or lip ulcers, no bleeding gums, normal dentition. Oropharynx: moist mucous membranes, no erythema, no exudates, tonsils not enlarged Neck: Neck: supple, FROM. Lymph Nodes: no cervical LAD, no axillary LAD Lungs: Respiratory effort: no dyspnea, no tachypnea, no use of accessory muscles, no intercostal retractions. Auscultation: breath sounds normal, clear to auscultation, no wheezing, no rales/crackles, no rhonchi, no retractions, good air movement Cardiovascular: Heart Auscultation: RRR, no murmurs, no gallops, no rub, normal femoral pulse. Rate and rhythm: regular Neurologic: Gait and Station: normal gait, normal station Skin: Inspection and palpation: no rash, indurated Abdomen: Palpation: non-distended, no guarding, no tenderness. Liver: non-tender, no hepatomegaly. Spleen: non-tender, no splenomegaly. Hernia: no palpable hernias. Bowel Sounds: normal. Inspection and Palpation: soft, no rebound tenderness, no masses, no CVA tenderness
--- OUTSIDE RECORDS SUMMARY | 2018-11-09 06:49 | XMS REPORT | Summary of Care ---
Author Organization Unknown Address Unknown Phone Unavailable Care Team Providers Care Curling Machine Operator Name Role Phone Austen Hopson PCP Unavailable Encounter Patfracisco_vanessa(KENA) [id number] Date(s): 06/01/14 - 06/01/14 [facility] Outpatient Imaging - [address] [address] [place] Discharge Disposition: Home Physician Attending: Ivan Gabriel MD Reason for Visit 719.46 - JOINT PAIN-L/LE Problem List Condition Effective Dates Status Health [...]
--- OUTSIDE RECORDS SUMMARY | 2018-11-09 06:49 | XMS REPORT | Summary of Care ---
Author Author [facility] [place] Organization [facility] [place] Address Unknown Phone Unavailable Encounter HQ Estefani(FIN) [id number] Date(s): 07/03/17 - 07/03/17 [facility] [place] [address] [place], [place] [address] [phone] Encounter Diagnosis Encounter for screening mammogram for malignant neoplasm of breast (Final) - 07/04/17 Discharge Disposition: Home or Self Care Attending Physician: Cheli Smith MD Vital Signs No data available for this section Problem List Condition Effective Dates Status Health Status Informant Allergic Resolved rhinitis(Confirmed) Biliary calculus1 06/21/13 Active Contact Resolved dermatitis(Confirmed ) Diabetes mellitus Active type 2(Confirmed) High Active cholesterol(Confirme d) Incontinence, Active feces(Confirmed)2 Obesity3 06/21/13 Active Right upper quadrant 06/21/13 Active pain4 Sickle cell Active trait(Confirmed) Sleep Active apnea(Confirmed)5 1Data migrated from [employer] on 10/24/14. 2takes PO meds 3Data migrated from [employer] on 10/24/14. 4Data migrated from [employer] on 10/24/14. 5uses CPAP Allergies, Adverse Reactions, Alerts Substance Reaction Severity Status NKDA Active Medications No data available for this section Results No data available for this section Immunizations No data available for this section Procedures Procedure Date Related Diagnosis Body Site Status Cholecystectomy Completed Operation Completed Operation Completed Tubal ligation Completed Social History Social History Type Response Substance Abuse Use: None. Exercise Exercise duration: 30. Exercise frequency: 3-4 times/week. Exercise type: Aerobics, bike.1 Alcohol Current, Type Wine. Frequency: 1-2 times per year. Smoking Status Never smoker; Exposure to Tobacco Smoke None; Cigarette Smoking Last 365 Days No; Reg Smoking Cessation Counseling No entered on: 10/08/17 1denied activity intolerance Assessment and Plan No data available for this section
--- OUTSIDE RECORDS SUMMARY | 2018-11-09 06:49 | XMS REPORT | Summary of Care ---
Author Author [facility] Organization [facility] Address Unknown Phone Unavailable Encounter HQ Estefani(FIN) [id number] Date(s): 10/08/17 - 10/08/17 [facility] [address] [address] [place], [place] [address]- [phone] Encounter Diagnosis Cellulitis of left lower leg (Discharge Diagnosis) - 10/08/17 Insect bite of left leg (Discharge Diagnosis) - 10/08/17 Discharge Disposition: Home or Self Care Attending Physician: Raman Olea MD Vital Signs Most recent to 1 oldest [Reference Range]: Height 170.18 cm (10/08/17 7:22 PM) Temperature Oral 98.5 DegF [96.4-99.1 DegF] (10/08/17 7:22 PM) Blood Pressure 137/66 mmHg [90-140/60-90 mmHg] (10/08/17 7:22 PM) Respiratory Rate 18 BRMIN [14-20 BRMIN] (10/08/17 7:22 PM) Peripheral Pulse 80 bpm Rate [60-100 bpm] (10/08/17 7:22 PM) Weight 98.636 kg (10/08/17 7:22 PM) Body Mass Index 34.06 m2 (10/08/17 7:22 PM) Problem List Condition Effective Dates Status Health [...] [employer] on 10/24/14. 4Data migrated from [employer] on 10/24/14. 5uses CPAP Allergies, Adverse Reactions, Alerts Substance Reaction Severity Status NKDA Active Medications Keflex 500 mg oral capsule 500 mg=1 cap, PO, QID, X 7 day, # 28 cap, 0 Refill(s) Start Date: 10/08/17 Stop Date: 10/15/17 Status: Ordered Results No data available for this section [...]
--- OUTSIDE RECORDS SUMMARY | 2018-11-09 06:49 | XMS REPORT | Summary of Care ---
Author Author [facility] Organization [facility] Address Unknown Phone Unavailable Encounter ROSE Jara(KENA) [id number] Date(s): 02/05/18 - 02/05/18 [facility] [address] [address]- [phone] Encounter Diagnosis Epidermal cyst (Final) - 02/09/18 Other granulomatous disorders of the skin and subcutaneous tissue (Final) - Other specified disorders of breast (Final) - Scar conditions and fibrosis of skin (Final) - Type 2 diabetes mellitus without complications (Final) - Obstructive sleep apnea (adult) (pediatric) (Final) - Sickle-cell trait (Final) - nursing home (current) use of oral hypoglycemic drugs (Final) - Discharge Disposition: Home or Self Care Attending Physician: Anny Mckeon MD Referring Physician: Anny Mckeon MD Vital Signs 1 2 3 Most recent to oldest [Reference Range]: 170.18 cm (02/02/18 1:11 PM) Height 98 DegF (02/05/18 5:33 AM) 97.0 DegF (02/04/18 3:00 PM) Temperature Oral [96.4-99.1 DegF] 116/78 mmHg (02/05/18 8:30 AM) 114/79 mmHg (02/05/18 8:15 AM) 102/70 mmHg (02/05/18 8:00 AM) Blood Pressure [90-140/60-90 mmHg] 15 BRMIN (02/05/18 8:30 AM) 14 BRMIN (02/05/18 8:15 AM) 15 BRMIN (02/05/18 8:00 AM) Respiratory Rate [14-20 BRMIN] 72 bpm (02/05/18 8:30 AM) 69 bpm (02/05/18 8:15 AM) 68 bpm (02/05/18 8:00 AM) Peripheral Pulse Rate [60-100 bpm] 95.727 kg (02/05/18 5:21 AM) Weight 33.05 m2 (02/05/18 5:21 AM) Body Mass Index Problem List Condition Effective Dates Status Health Status Informant Acute 01/19/18 Resolved bronchitis(Confirmed )1 Allergic Resolved rhinitis(Confirmed) Biliary calculus2 06/21/13 Active Contact Resolved dermatitis(Confirmed ) Diabetes mellitus Active type 2(Confirmed) High Active cholesterol(Confirme d) Incontinence, Active feces(Confirmed)3 Menopause(Confirmed) Active Obesity4 06/21/13 Active Right upper quadrant 06/21/13 Active pain5 Sickle cell Active trait(Confirmed) Sleep Active apnea(Confirmed)6 1Saw her doctoe on 01-19-18 for brinchitis; ststes receive a shot; may have been a steroid, and was put on antibiotic po, which is now competed. pt ststed she doesn't have any more productive cough; had a CXR on - which showed clear lung boss. 2Data migrated from [email or web address] on 10/24/14. 3takes PO meds 4Data migrated from [employer] on 10/24/14. 5Data migrated from [employer] on 10/24/14. 6uses CPAP Allergies, Adverse Reactions, Alerts Substance Reaction Severity Status NKDA Active Medications acetaminophen (ANES) 10 mg Route: IV, Drug form: INJ, Start date: 02/05/18 7:15:00 CDT, Stop date: 02/05/18 8:15:00 CDT Start Date: 02/05/18 Stop Date: 02/05/18 Status: Completed clindamycin 600 mg, 50 mL, Route: IVPB, Drug form: INJ, ONCE, Dosing Weight 95.727, kg, Star t date: 02/05/18 5:22:00 CDT, Stop date: 02/05/18 5:22:00 CDT, ABX Indication: S urgical Prophylaxis Start Date: 02/05/18 Stop Date: 02/16/18 Status: Discontinued clindamycin (ANES) 300 mg Route: IV, Drug form: INJ, Start date: 02/05/18 7:12:00 CDT, Stop date: 02/05/18 8:12:00 CDT Start Date: 02/05/18 Stop Date: 02/05/18 Status: Completed fentaNYL (ANES) Route: IV, Drug form: INJ, ONCE, Stop date: 02/05/18 7:48:00 CDT Start Date: 02/05/18 Stop Date: 02/05/18 Status: Completed heparin 5,000 unit, Route: SUB-Q, ONCE, Dosing Weight 95.727, kg, Start date: 02/05/18 5 :23:00 CDT, Stop date: 02/05/18 5:23:00 CDT Start Date: 02/05/18 Stop Date: 02/05/18 Status: Completed Lactated Ringers Injection IV (ANES) 1000 mL Route: IV, Total Volume: 1,000, Start date: 02/05/18 7:08:00 CDT, Stop date: 8:08:00 CDT Start Date: 02/05/18 Stop Date: 02/05/18 Status: Completed Lactated Ringers IV 1,000 mL 1,000 mL, Rate: 40 ml/hr, Infuse over: 25 hr, Route: IV, Dosing Weight 95.727 kg , Total Volume: 1,000, Start date: 02/05/18 5:23:00 CDT, Duration: 30 day, Stop date: 03/07/18 5:22:00 CDT, 2.15, m2 Start Date: 02/05/18 Stop Date: 02/06/18 Status: Discontinued lidocaine (ANES) Route: IV, Drug form: INJ, ONCE, Stop date: 02/05/18 7:48:00 CDT Start Date: 02/05/18 Stop Date: 02/05/18 Status: Completed midazolam (ANES) Route: IV, Drug form: SOLN, ONCE, Stop date: 02/05/18 7:48:00 CDT Start Date: 02/05/18 Stop Date: 02/05/18 Status: Completed Ofirmev 1,000 mg, 100 mL, Route: IV, Drug form: INJ, ONCE, Dosing Weight 95.727, kg, Sta rt date: 02/05/18 5:23:00 CDT, Stop date: 02/05/18 5:23:00 CDT Notes: Infuse over 15 minutesDo not exceed 4gm/day of acetaminophen MEDICAT ION WASTE Product Size: 1000 mgProduct Wasted: ___ mg Start Date: 02/05/18 Stop Date: 02/16/18 Status: Discontinued ondansetron (ANES) Route: IV, Drug form: INJ, ONCE, Stop date: 02/05/18 7:48:00 CDT Start Date: 02/05/18 Stop Date: 02/05/18 Status: Completed propofol (ANES) Route: IV, Drug form: INJ, ONCE, Stop date: 02/05/18 7:48:00 CDT Start Date: 02/05/18 Stop Date: 02/05/18 Status: Completed scopolamine 1.5 mg transdermal film 1.5 mg, 1 patch, Route: TOP, Dosing Weight 95.727, kg, ONCE, Start date: 8 5:23:00 CDT, Stop date: 02/05/18 5:23:00 CDT Start Date: 02/05/18 Stop Date: 02/05/18 Status: Completed Results ELECTROLYTES Most recent to 1 oldest [Reference Range]: Sodium Lvl [135-145 140 mEq/L mEq/L] (02/04/18 3:08 PM) Potassium Lvl 3.9 mEq/L [3.5-5.1 mEq/L] (02/04/18 3:08 PM) Chloride Lvl [95-109 104 mEq/L mEq/L] (02/04/18 3:08 PM) CO2 [24-32 mEq/L] 27 mEq/L (02/04/18 3:08 PM) AGAP [10.0-20.0 12.9 mEq/L mEq/L] (02/04/18 3:08 PM) CHEM PANEL Most recent to 1 oldest [Reference Range]: Creatinine Lvl 0.68 mg/dL [0.50-1.40 mg/dL] (02/04/18 3:08 PM) eGFR 112 mL/min/1.73m2 1 *NA* (02/04/18 3:08 PM) BUN [7-22 mg/dL] 14 mg/dL (02/04/18 3:08 PM) Glucose Lvl [70-99 118 mg/dL mg/dL] *HI* (02/04/18 3:08 PM) Calcium Lvl 9.2 mg/dL [8.5-10.5 mg/dL] (02/04/18 3:08 PM) 1Result Comment: The eGFR is calculated using [...] be mul tiplied by the estimated BMI. SPECIAL CHEMISTRY Most recent to 1 oldest [Reference Range]: Hgb A1C [<=5.6 %] 7.8 % *HI* (02/04/18 3:08 PM) HEMATOLOGY Most recent to 1 oldest [Reference Range]: WBC [3.7-10.4 K/CMM] 7.7 K/CMM (02/04/18 3:08 PM) RBC [4.20-5.40 4.46 M/CMM M/CMM] (02/04/18 3:08 PM) Hgb [12.0-16.0 g/dL] 11.0 g/dL *LOW* (02/04/18 3:08 PM) Hct [36.0-48.0 %] 34.8 % *LOW* (02/04/18 3:08 PM) MCV [80.0-98.0 fL] 78.1 fL *LOW* (02/04/18 3:08 PM) MCH [27.0-31.0 pg] 24.7 pg *LOW* (02/04/18 3:08 PM) MCHC [32.0-36.0 31.7 g/dL g/dL] *LOW* (02/04/18 3:08 PM) RDW [11.5-14.5 %] 16.8 % *HI* (02/04/18 3:08 PM) MPV [7.4-10.4 fL] 8.6 fL (02/04/18 3:08 PM) Platelet [133-450 240 K/CMM K/CMM] (02/04/18 3:08 PM) Segs [45.0-75.0 %] 60.6 % (02/04/18 3:08 PM) Lymphocytes 30.3 % [20.0-40.0 %] (02/04/18 3:08 PM) Monocytes [2.0-12.0 6.3 % %] (02/04/18 3:08 PM) Eosinophils [0.0-4.0 1.7 % %] (02/04/18 3:08 PM) Basophils [0.0-1.0 1.1 % %] *HI* (02/04/18 3:08 PM) Neutrophils # 4.6 K/CMM [1.5-8.1 K/CMM] (02/04/18 3:08 PM) Lymphocytes # 2.3 K/CMM [1.0-5.5 K/CMM] (02/04/18 3:08 PM) Monocytes # [0.0-0.8 0.5 K/CMM K/CMM] (02/04/18 3:08 PM) Eosinophils # 0.1 K/CMM [0.0-0.5 K/CMM] (02/04/18 3:08 PM) Basophils # [0.0-0.2 0.1 K/CMM K/CMM] (02/04/18 3:08 PM) Microcyte [None 1+ Seen] *ABN* (02/04/18 3:08 PM) Immunizations No data available for this section Procedures Procedure Date Related Diagnosis Body Site Status Cholecystectomy Completed Operation Completed Operation Completed Tubal ligation Completed Social History Social History Type Response Substance Abuse Use: None. Exercise Exercise duration: 30. Exercise frequency: 3-4 times/week. Exercise type: Aerobics, bike.1 Employment/School Status: Employed. 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 Alcohol Current, Type Wine. Frequency: 1-2 times per year. Smoking Status Never smoker; Exposure to Tobacco Smoke None; Cigarette Smoking Last 365 Days No; Reg Smoking Cessation Counseling No entered on: 02/05/18 1denied activity intolerance Assessment and Plan Extracted from: Title: [facility] Summary Author: Anny Mckeon MD Date: 02/05/18 Discharge Summary Patient Name: ADIEL LADD Date of Admission: 02/05/2018 05:10 Date of Discharge: 02/05/2018 07:57 Admitting Surgeon: Anny Mckeon MD Admission Diagnosis: Left breast epidermal inclusion cyst Additional Discharge Diagnosis(es): 1. Epidermal cyst (L72.0) Procedures: 1. Excision left breast epidermal inclusion cyst Consulting Services: 1. none Brief Summary of Present Illness: 57yoF w/ DM, MILADIS, h/o kidradenitis BL arms and vulva presented with a epidermal inclusion cyst that had increased in size and previously drained clear fluid. Hospital Course: Patient presented for above procedure and tolerated it well. She was transferred to PACU in good condition. She was discharged home after meeting PACU criteria. Scheduled for 2 week follow up with Dr. Mckeon for path review and wound check. Discharge Medications: No qualifying data available Discharge Diet: Home Diet: Diet Carbohydrate Controlled Discharge Activity: Activity: no strenuous aerobic activity for 2 weeks Driving: No driving on narcotic pain medications Lifting: Permitted Bathing: Shower only Wound Care Instructions: Wound Care: Keep incision clean and dry No submerging wound in water You may shower POD#1 Please notify your physician if any of the following occur: Bleeding, Fever, Nausea, Pain, Shortness of breath, Signs of infection, Swelling Drain Care Instructions: n/a Disposition: Home Follow up Appointments: Follow Up With Anny Mckeon MD, Call for appointment, within: 2 Weeks, reason: Post Op Visit Ezra Hopknis, DO General Surgery PGY-3 Pgr#[id number] MSO#[id number]
--- OUTSIDE RECORDS SUMMARY | 2018-11-09 06:49 | XMS REPORT | Summary of Care ---
Author Author [facility] Organization [facility] Address Unknown Phone Unavailable Encounter ROSE Jara(KENA) [id number] Date(s): 10/13/17 - 10/13/17 [facility] [address] [address]- [phone] Attending Physician: Anny Mckeon MD Referring Physician: Anny Mckeon MD Vital Signs Most recent to 1 oldest [Reference Range]: Height 170.18 cm (10/08/17 2:48 PM) Weight 94.545 kg (10/08/17 2:48 PM) Body Mass Index 32.65 m2 (10/08/17 2:48 PM) Problem List Condition Effective Dates Status [...] Substance Reaction Severity Status NKDA Active Medications atorvastatin 10 mg oral tablet 10 mg=1 tab, PO, Bedtime, # 30 tab, 0 Refill(s) Start Date: 10/08/17 Status: Ordered colestipol 1 g oral tablet 1 gm=1 tab, PO, BID, # 60 tab, 0 Refill(s) Start Date: 10/08/17 Status: Ordered DULoxetine 30 mg oral delayed release capsule 30 mg=1 cap, PO, Bedtime, # 30 cap, 0 Refill(s) Start Date: 10/08/17 Status: Ordered glimepiride 1 mg oral tablet 2 mg=2 tab, PO, BID, # 30 tab, 0 Refill(s) Start Date: 10/08/17 Status: Ordered losartan 25 mg oral tablet 25 mg=1 tab, PO, Daily, # 30 tab, 0 Refill(s) Start Date: 10/08/17 Status: Ordered metFORMIN 500 mg oral tablet, extended release 1,000 mg=2 tab, PO, BID-Meals, # 60 tab, 1 Refill(s) Start Date: 10/08/17 Status: Ordered Results No data available for [...]
--- OUTSIDE RECORDS SUMMARY | 2018-11-09 06:49 | XMS REPORT | Summary of Care ---
Author Author [facility] Address Unknown Phone Unavailable Encounter HQ Angelica_vanessa(FIN) [id number] Date(s): 01/08/17 - 01/08/17 [facility] [address] [facility] [place] [address]- Discharge Disposition: Home or Self Care Attending [...]
--- OUTSIDE RECORDS SUMMARY | 2018-11-09 06:49 | XMS REPORT | Summary of Care ---
Author Author [facility] Organization [facility] Address Unknown Phone Unavailable Care Team Providers Care Ballistics Tester Name Role Phone Austen Hopson PCP Unavailable Encounter HQ Estefani(KENA) [id number] Date(s): 05/04/15 - 05/04/15 [facility] [address] [place] [address] [phone] Discharge Disposition: Home Attending Physician: Alex Gambino MD Referring Physician: Alex Gambino MD Vital Signs 1 2 3 Most recent to oldest [Reference Range]: 170.18 cm (05/03/15 10:26 AM) Height 112/71 mmHg (05/04/15 9:00 AM) 103/67 mmHg (05/04/15 8:45 AM) 143/77 mmHg *HI* (05/04/15 7:53 AM) Blood Pressure [90-140/60-90 mmHg] 17 BRMIN (05/04/15 9:00 AM) 14 BRMIN (05/04/15 8:45 AM) 16 BRMIN (05/04/15 8:30 AM) Respiratory Rate [14-20 BRMIN] 94.091 kg (05/03/15 10:26 AM) Weight 32.49 m2 (05/03/15 10:26 AM) Body Mass Index Problem List Condition Effective Dates Status Health Status Informant Allergic Resolved rhinitis(Confirmed) Biliary calculus1 06/21/13 Active Contact Resolved dermatitis(Confirmed ) Diabetes mellitus Resolved type 2(Confirmed) Glaucoma(Confirmed) Resolved Obesity2 06/21/13 Active Right upper quadrant 06/21/13 Active pain3 Sickle cell Resolved trait(Confirmed) Sleep Resolved apnea(Confirmed)4 1Data migrated from [employer] on 10/24/14. 2Data migrated from [employer] on 10/24/14. 3Data migrated from [employer] on 10/24/14. 4uses CPAP Allergies, Adverse Reactions, Alerts Substance Reaction Severity Status NKDA Active Medications predniSONE 20 mg oral tablet 20 mg=1 tab, PO, Daily, # 7 tab, 0 Refill(s) Start Date: 05/03/15 Stop Date: 05/10/15 Status: Ordered Sodium Chloride 0.9% IV 1000 mL 1,000 mL, Rate: 25 ml/hr, Infuse over: 40 hr, Route: IV, Dosing Weight 94.091 kg , Total Volume: 1,000, Start date: 05/04/15 7:27:00, Duration: 30 day, Stop date : 06/03/15 7:26:00 Start Date: 05/04/15 Stop Date: 05/04/15 Status: Discontinued Results No data available for this section [...]
--- OUTSIDE RECORDS SUMMARY | 2018-11-09 06:49 | XMS REPORT | Continuity of Care Document ---
Author Author [facility] Organization [facility] Address Unknown Phone Unavailable Care Team Providers Care Artificial Stone Applicator Name Role Phone MD Marshall, Kuldip WILLIAMSON Unavailable Insurance Providers Payer name Policy type / Coverage type Policy ID Covered alliance party ID Policy [place] [facility] (POS) Encounters Encounter Performer Location Date Office Visit Kuldip Olivares MD [facility] General Surgery 350 Aug 04, 2013 Problems Problem Effective Dates Problem Status [...]
--- OUTSIDE RECORDS SUMMARY | 2018-11-09 06:49 | XMS REPORT | Summary of Care ---
Author Author [facility] [place] Organization [facility] [place] Address Unknown Phone Unavailable Encounter ROSE Jara(FIN) [id number] Date(s): 09/14/17 - 09/14/17 [facility] [place] [address] [place] [address]- [phone] Discharge Disposition: Home or Self Care Attending [...] Reg Smoking Cessation Counseling No entered on: 02/13/16 Assessment and Plan No data available for this section
--- OUTSIDE RECORDS SUMMARY | 2018-11-09 06:49 | XMS REPORT | Summary of Care ---
Author Author [facility] Organization [facility] Address Unknown Phone Unavailable Encounter ROSE Jara(FIN) [id number] Date(s): 01/29/18 - 01/29/18 [facility] Outpatient Imaging [facility] [address] [place] [address] [id number] 1999 Encounter Diagnosis Acute bronchitis, unspecified (Final) - 02/04/18 Discharge Disposition: Home or Self Care Attending Physician: Leona Serrano MD Referring Physician: Leona Serrano MD Vital Signs No data available for [...] showed clear lung boss. 2Data migrated from [employer] on 10/24/14. 3takes PO meds 4Data migrated from [employer] on 10/24/14. 5Data migrated from [employer] on 10/24/14. 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 Alcohol Current, Type Wine. Frequency: 1-2 times per year. Smoking Status Never smoker; Exposure to Tobacco Smoke None; Cigarette Smoking Last 365 Days No; Reg Smoking Cessation Counseling No entered on: 02/05/18 1denied activity intolerance Assessment and Plan No data available for this section
[2018-11-09 11:57] VITALS: BP 119/83
== END | disposition home or self-care (01) ==
LOC: OR 06:45
PROVIDERS: ATTEND Ophthalmology
DX: H25.12 Age-related nuclear cataract, left eye (principal); E11.9 Type 2 diabetes mellitus without complications; G47.33 Obstructive sleep apnea (adult) (pediatric); I10 Essential (primary) hypertension; Z79.84 Long term (current) use of oral hypoglycemic drugs
CPT/HCPCS: 66984; J2250; V2632